=== PATIENT | male | born 1935 | race Caucasian/White ===

== ENCOUNTER 2017-04-10 15:37 | Observation (INO) ==
--- NOTE | 2017-04-10 16:12 | Emergency Department Note ---
Disposition Clinical Impression: Dyspnea Disposition: Admitted As Inpatient Condition: Fair Time of Disposition: 18:49 (margarita mirandav [facility]) SOB HPI - General Chief Complaint: ED General Medical Stated Complaint: Aspirating Source: patient, EMS, other Mode of arrival: EMS Limitations: physical limitation, age Nursing Notes Reviewed: Yes Vital Signs Reviewed: Yes - History of Present Illness 81-year-old male brought in from home who presents to the emergency room who per the caregiver is concerned that he may have aspirated he receives almost 1 L of fluids in a very short period time through his PEG tube and he has had some episodes of recent episodes which would be consistent with potential for aspiration as result they contacted the family physician is 70 emergency room in addition that he has been having cough congestion large amount of phlegm through the tracheostomy site and he has been having frequency and urgency they did not note that he has had any complaints of any dysuria patient is difficult to understand due to prior medical history with him being minimal verbal Pt Subjective Complaint: shortness of breath, cough Onset (ago): hour(s) (12) Context: recent illness Severity: none, moderate Consistency/Duration: constant Improves with: nothing Worsens with: lying flat, exertion Known history of: COPD, recurrent pneumonia Associated symptoms: Reports: cough, wheezing, sputum production. Denies: chest pain, pain with inspiration, fever, orthopnea, lower extremity pain, polyuria, polydipsia, parasthesias, palpitations, hemoptysis, diaphoresis, nausea/vomiting, syncope, abdominal pain, sense of impending doom Treatment prior to arrival: none, diuretics Cough Description: Involuntary, Productive, Moist, Strong Cough Frequency: Intermittent Sputum production: No Sputum Amount: Moderate Sputum Color: Cream - Related Data Home Medications Medication Instructions Recorded Confirmed Clopidogrel [Plavix] 75 mg GTUBE DAILY 05/26/15 04/10/17 LORazepam [Ativan] 1 mg GTUBE BID PRN 05/26/15 04/10/17 Mometasone/Formoterol [Dulera 100 2 inh IH DAILY 05/26/15 04/10/17 Mcg/5 Mcg Inhaler] Montelukast [Singulair] 10 mg GTUBE DAILY 05/26/15 04/10/17 Nitroglycerin 0.4 mg TD DAILY 05/26/15 04/10/17 Nutritional Supplement [Nutren 2.0] 250 ml GTUBE Q4HR 05/26/15 04/10/17 Rosuvastatin Calcium [Crestor] 5 mg GTUBE DAILY 05/26/15 04/10/17 Sucralfate [Carafate] 1 gm GTUBE TID 05/26/15 04/10/17 Tiotropium [Spiriva] 18 mcg IH DAILY 05/26/15 04/10/17 Albuterol Neb [AccuNeb] 1.25 mg IH QID 01/29/16 04/10/17 Allopurinol [Zyloprim 100 MG] 200 mg GTUBE DAILY 01/29/16 04/10/17 Amoxicillin Susp [Amoxil] 5 ml PO BID 01/29/16 04/10/17 Divalproex Sodium [Depakote] 250 mg GTUBE TID 01/29/16 04/10/17 LORazepam [Ativan] 1 mg GTUBE QID 01/29/16 04/10/17 Memantine HCl/Donepezil HCl 1 each GTUBE HS 01/29/16 04/10/17 [Namzaric 28 mg-10 mg Capsule] Zolpidem [Ambien] 10 mg GTUBE HS 01/29/16 04/10/17 Acetaminophen [Tylenol] 500 mg GTUBE Q6HR 04/10/17 04/10/17 Albuterol Sulfate [Albuterol 1 puff IH Q4H 04/10/17 04/10/17 Inhaler] Clopidogrel [Plavix] 75 mg GTUBE DAILY 04/10/17 04/10/17 Dicyclomine [Dicyclomine HCl] 10 mg GTUBE Q4H PRN 04/10/17 04/10/17 Docusate [Colace] 100 mg GTUBE BID 04/10/17 04/10/17 Ferrous Sulfate [Ferosul] 10 ml GTUBE DAILY 04/10/17 04/10/17 Fluticasone Propionate Nasal 50 mcg NS QPM 04/10/17 04/10/17 [Flonase] Gabapentin [Neurontin] 2 ml GTUBE TID 04/10/17 04/10/17 Guaifenesin [Mucinex] 600 mg GTUBE TID 04/10/17 04/10/17 Ibuprofen Susp [Motrin Susp] 800 mg GTUBE Q6H 04/10/17 04/10/17 Loratadine [Allergy Relief] 10 mg GTUBE 04/10/17 MOM Conc [Milk of Magnesia Conc] 30 ml GTUBE DAILY 04/10/17 04/10/17 Melatonin 4 mg GTUBE DAILY 04/10/17 04/10/17 Memantine HCl/Donepezil HCl 1 each GTUBE DAILY 04/10/17 04/10/17 [Namzaric 28 mg-10 mg Capsule] Metoprolol Tartrate [Lopressor] 25 mg GTUBE BID 04/10/17 04/10/17 Montelukast [Singulair] 10 mg GTUBE DAILY 04/10/17 04/10/17 NaCl/Nahco3/Hyaluron Sod/Aloe 50 mcg IH DAILY 04/10/17 04/10/17 [Nasogel Nasal Ray] Nutritional Supplement [Resource GTUBE QID 04/10/17 2.0] Nystatin POWDER [Nystop] 10 ml TP BID 04/10/17 04/10/17 PredniSONE [Carina] 5 mg GTUBE DAILY 04/10/17 04/10/17 Quetiapine Fumarate [Seroquel Xr] 200 mg GTUBE DAILY 04/10/17 04/10/17 Rosuvastatin Calcium [Crestor] 5 mg GTUBE QPM 04/10/17 04/10/17 Tamsulosin HCl [Flomax] 0.4 mg GTUBE DAILY 04/10/17 04/10/17 Valproic Acid (As Sodium Salt) GTUBE TID 04/10/17 04/10/17 [Valproic Acid] Allergies Allergy/AdvReac Type Severity Reaction Status Date / Time diazepam [From Valium] Allergy Agitated Verified 05/26/15 22:15 All systems ED: reviewed and negative except as stated. Review of Systems: As Per HPI Constitutional: Denies: fever, chills, weakness Eyes: Denies: eye pain ENT ED: Denies: ear pain Cardiovascular: Denies: chest pain Respiratory: Reports: cough, dyspnea Gastrointestinal: Denies: abdominal pain, nausea, vomiting Genitourinary: Denies: urgency, dysuria, frequency Musculoskeletal: Denies: back pain Integumentary: Denies: rash Neurological: Denies: headache Psychiatric: Denies: anxiety Endocrine: Denies: fatigue Hematological/Lymphatic: Denies: easy bleeding Allergic/Immunologic: Denies: facial swelling Past Medical History - Past Medical History Attestation: Yes The following information was validated with the patient. Source: patient, old records reviewed, obtained from family, nursing notes reviewed Medical history: Reports: COPD, CVA, dementia, hyperlipidemia, hypertension, other Surgical history: Reports: tracheostomy Psychiatric history: Reports: anxiety - Social History Smoking Status: Former smoker Smokeless Tobacco Status: No Alcohol use: Reports: none Drug use: Reports: none Physical Exam - General Limitations: physical limitation, age General appearance: alert, in no apparent distress, anxious, obese - Head Head exam: atraumatic, normocephalic, normal inspection - Eye Eye exam: Present: normal appearance, PERRL, EOMI - ENT ENT exam: normal exam, normal oropharynx, mucous membranes moist, normal external ear exam, other (Posterior pharyngeal shows a little bit of mucus but there is no erythema no edema no formula or fluids noted within the oral pharyngeal region consistent with aspiration of formula or PEG tube feeding) - Neck Neck exam: Present: normal inspection, full ROM, trachea midline, other ( Tracheostomy large amount of green phlegm noted within the tracheal region) - Chest Chest inspection: Present: normal inspection, symmetric chest wall rise - Respiratory Respiratory exam: Present: normal lung sounds bilaterally, other (Rhonchi) - Cardiovascular Cardiovascular exam: Present: regular rate, normal rhythm, normal heart sounds - Abdominal Exam Abdominal exam: Present: soft, Non-Tender, distention, normal bowel sounds. Absent: mass, pulsatile mass - Expanded Upper Extremity Exam Shoulder exam: Present: normal inspection, full ROM, other (Depression extremity shows a flexion contracture of that he had hand and wrist region in comparison to the right arm which has full range of motion neurovascular motor intact PEG tube is noted) Arm exam: Present: normal inspection, full ROM Elbow exam: Present: normal inspection, full ROM Forearm/Wrist exam: Present: normal inspection, full ROM Hand exam: Present: normal inspection, full ROM Neurosensory exam: Normal: radial nerve, ulnar nerve, median nerve Vascular exam: Normal: capillary refill, radial pulse, ulnar pulse - Expanded Lower Extremity Exam Hip/Pelvis exam: Present: normal inspection, full ROM Upper leg exam: Present: normal inspection, full ROM Knee exam: Present: normal inspection, full ROM Lower leg exam: Present: normal inspection, full ROM Ankle exam: Present: normal inspection, full ROM Foot/toe exam: Present: normal inspection, full ROM Neurovascular/Tendon exam: Present: normal capillary refill, normal fine/light touch (Patient has bilateral lower extremity neurovascular motor intact jumping up and down fidgeting while laying on the bed trying to get comfortable). Absent: motor deficit, sensory deficit, tendon deficit Gait: observed and normal - Back Exam Back exam: Present: normal inspection, full ROM. Absent: muscle spasm - Neurological Exam Neurological exam: Present: alert, oriented X3, CN II-XII intact, other ( Nonverbal but communicates well) - Psychiatric Psychiatric exam: Present: normal affect, normal mood - Skin Skin exam: Present: warm, dry, intact, normal color Course Course Narrative: She presents to the emergency room with a history of possible aspiration examination was performed patient was started on antibiotics to cover him in the event that he would show any signs of sepsis though at this time he does not show does not be septic protocol patient though in review chest x-ray is obtained I spoke with Dr. Barreto as he had significant rhonchi was blowing large amount of mucus out through his stoma CT was not done because he just had a CAT scan yesterday and it showed cavitary lesions on the CAT scan as result he was admitted for observation with repeat chest x-ray in the a.m. receiving IV antibiotics in the event that got underlying with increased consolidation in the left basilar region is noted slight haziness pattern which be consistent with an early pneumonia Vital Signs Temperature 98.8 F 04/10/17 15:39 Pulse Rate 88 04/10/17 15:39 Respiratory Rate 20 04/10/17 15:39 Blood Pressure 151/75 04/10/17 15:39 O2 Sat by Pulse Oximetry 93 04/10/17 15:39 Temperature 98.8 F 04/10/17 18:26 Pulse Rate 93 04/10/17 19:01 Respiratory Rate 16 04/10/17 19:01 Blood Pressure 177/81 04/10/17 19:01 O2 Sat by Pulse Oximetry 95 04/10/17 19:01 Oxygen Delivery Oxygen Delivery Nasal Cannula Shortness of Breath/Dyspnea - [facility] Narrative Medical decision making narrative: Aspiration pneumonia versus pneumonia patient recently just been hospitalized for pneumonia In addition urinary tract infection and infectious etiology can also be etiologies for presentation at this time - Differential Diagnosis Likely: acute exacerbation of chronic obstructive airways disease - Medical Records Medical records reviewed: Yes I reviewed the patient's medical records. - Lab Data Lab results reviewed: Yes I reviewed the patient's lab results. Result diagrams: 04/10/17 16:20 04/10/17 16:20 Lab Results 04/10/17 04/10/17 04/10/17 Range/Units 16:20 16:20 16:20 WBC 4.2 L (4.3-11.1) K/mcL RBC 3.68 L (4.19-5.50) M/mcL Hgb 10.0 L (12.9-16.9) g/dL Hct 32.1 L (37.5-50.1) % MCV 87.2 (83.0-100.0) fL MCH 27.2 L (28.0-33.3) pg MCHC 31.2 L (31.6-35.5) g/dL RDW 14.8 H (11.5-14.5) % Plt Count 163 (140-400) K/mcL MPV 10.0 (9.4-12.4) fL Immature Gran % 0.7 (0-4) % Seg Neutrophils % 57.4 % Lymphocytes % 26.3 % Monocytes % 12.0 % Eosinophils % 3.1 % Basophils % 0.5 % Neutrophils # 2.4 (1.6-8.9) K/mcL Lymphocytes # 1.1 (0.6-4.6) K/mcL Monocytes # 0.5 (0.0-1.3) K/mcL Eosinophils # 0.1 (0.0-0.6) K/mcL Basophils # 0.0 (0.0-0.2) K/mcL Platelet Estimate Normal (Normal) PT 10.5 (9.4-12.1) Seconds INR 1.0 APTT 29.9 (26.0-36.0) Seconds Sodium 133 L (136-145) mEq/L Potassium 4.8 H (3.5-4.5) mEq/L Chloride 94 L (98-109) mEq/L Carbon Dioxide 31 H (19-29) mEq/L BUN 22 (8-26) mg/dL Creatinine 1.22 (0.72-1.25) mg/dL Est GFR ( Amer) > 60 (> 60) Est GFR (Non-Af Amer) 57 L (> 60) BUN/Creatinine Ratio 18 (6-26) Glucose 102 H (70-99) mg/dL Calculated Osmolality 280 (280-300) Calcium 10.4 (8.6-10.8) mg/dL Total Bilirubin 0.2 (0.2-1.2) mg/dL AST 15 (5-34) Units/L ALT 12 (0-55) Units/L Alkaline Phosphatase 81 (38-126) Units/L Troponin I (0-0.03) ng/mL B-Natriuretic Peptide (0-100) pg/mL Serum Total Protein 7.0 (6.0-8.3) g/dL Albumin 3.1 L (3.5-5.0) g/dL Globulin 3.9 H (2.4-3.5) g/dL Albumin/Globulin Ratio 0.8 L (1.1-2.2) Ur Specimen Adequacy Urine Color Urine Clarity Urine pH Ur Specific Bantam Urine Protein Urine Glucose (UA) Urine Ketones Urine Blood Urine Nitrite Urine Bilirubin Urine Urobilinogen Ur Leukocyte Esterase Urine Microscopic RBC (0-3) per hpf Urine Microscopic WBC Ur Squamous Epith Cells (None-Few) per lpf Ur Culture Indicated? (NO) Valproic Acid (50-100) mcg/mL 04/10/17 04/10/17 04/10/17 Range/Units 16:20 16:20 16:20 WBC (4.3-11.1) K/mcL RBC (4.19-5.50) M/mcL Hgb (12.9-16.9) g/dL Hct (37.5-50.1) % MCV (83.0-100.0) fL MCH (28.0-33.3) pg MCHC (31.6-35.5) g/dL RDW (11.5-14.5) % Plt Count (140-400) K/mcL MPV (9.4-12.4) fL Immature Gran % (0-4) % Seg Neutrophils % % Lymphocytes % % Monocytes % % Eosinophils % % Basophils % % Neutrophils # (1.6-8.9) K/mcL Lymphocytes # (0.6-4.6) K/mcL Monocytes # (0.0-1.3) K/mcL Eosinophils # (0.0-0.6) K/mcL Basophils # (0.0-0.2) K/mcL Platelet Estimate (Normal) PT (9.4-12.1) Seconds INR APTT (26.0-36.0) Seconds Sodium (136-145) mEq/L Potassium (3.5-4.5) mEq/L Chloride (98-109) mEq/L Carbon Dioxide (19-29) mEq/L BUN (8-26) mg/dL Creatinine (0.72-1.25) mg/dL Est GFR ( Amer) (> 60) Est GFR (Non-Af Amer) (> 60) BUN/Creatinine Ratio (6-26) Glucose (70-99) mg/dL Calculated Osmolality (280-300) Calcium (8.6-10.8) mg/dL Total Bilirubin (0.2-1.2) mg/dL AST (5-34) Units/L ALT (0-55) Units/L Alkaline Phosphatase (38-126) Units/L Troponin I 0.00 (0-0.03) ng/mL B-Natriuretic Peptide 43 (0-100) pg/mL Serum Total Protein (6.0-8.3) g/dL Albumin (3.5-5.0) g/dL Globulin (2.4-3.5) g/dL Albumin/Globulin Ratio (1.1-2.2) Ur Specimen Adequacy Urine Color Urine Clarity Urine pH Ur Specific [place] Urine Protein Urine Glucose (UA) Urine Ketones Urine Blood Urine Nitrite Urine Bilirubin Urine Urobilinogen Ur Leukocyte Esterase Urine Microscopic RBC (0-3) per hpf Urine Microscopic WBC Ur Squamous Epith Cells (None-Few) per lpf Ur Culture Indicated? (NO) Valproic Acid 44.9 L (50-100) mcg/mL 04/10/17 04/10/17 Range/Units 17:00 18:22 WBC (4.3-11.1) K/mcL RBC (4.19-5.50) M/mcL Hgb (12.9-16.9) g/dL Hct (37.5-50.1) % MCV (83.0-100.0) fL MCH (28.0-33.3) pg MCHC (31.6-35.5) g/dL RDW (11.5-14.5) % Plt Count (140-400) K/mcL MPV (9.4-12.4) fL Immature Gran % (0-4) % Seg Neutrophils % % Lymphocytes % % Monocytes % % Eosinophils % % Basophils % % Neutrophils # (1.6-8.9) K/mcL Lymphocytes # (0.6-4.6) K/mcL Monocytes # (0.0-1.3) K/mcL Eosinophils # (0.0-0.6) K/mcL Basophils # (0.0-0.2) K/mcL Platelet Estimate (Normal) PT (9.4-12.1) Seconds INR APTT (26.0-36.0) Seconds Sodium (136-145) mEq/L Potassium (3.5-4.5) mEq/L Chloride (98-109) mEq/L Carbon Dioxide (19-29) mEq/L BUN (8-26) mg/dL Creatinine (0.72-1.25) mg/dL Est GFR ( Amer) (> 60) Est GFR (Non-Af Amer) (> 60) BUN/Creatinine Ratio (6-26) Glucose (70-99) mg/dL Calculated Osmolality (280-300) Calcium (8.6-10.8) mg/dL Total Bilirubin (0.2-1.2) mg/dL AST (5-34) Units/L ALT (0-55) Units/L Alkaline Phosphatase (38-126) Units/L Troponin I (0-0.03) ng/mL B-Natriuretic Peptide (0-100) pg/mL Serum Total Protein (6.0-8.3) g/dL Albumin (3.5-5.0) g/dL Globulin (2.4-3.5) g/dL Albumin/Globulin Ratio (1.1-2.2) Ur Specimen Adequacy Urine Color TNP Yellow Urine Clarity TNP Clear Urine pH TNP 7.0 Ur Specific Bantam TNP 1.010 Urine Protein TNP Negative Urine Glucose (UA) TNP Normal Urine Ketones TNP Negative Urine Blood TNP Trace-intact H Urine Nitrite TNP Negative Urine Bilirubin TNP Negative Urine Urobilinogen TNP Normal Ur Leukocyte Esterase TNP Negative Urine Microscopic RBC 0-3 (0-3) per hpf Urine Microscopic WBC SPRINKLING SYSTEM IRRIGATOR 0-3 Ur Squamous Epith Cells Few (None-Few) per lpf Ur Culture Indicated? NO NO (NO) Valproic Acid (50-100) mcg/mL - Radiology Data Radiology results reviewed: Yes I reviewed the patient's radiology results. ITS Impressions Chest X-Ray 04/10/17 15:52 IMPRESSION: 1. Stable chronic perihilar and left lung base consolidative changes. 2. No acute abnormality. D/ / 04/10/2017 16:32:48 Deon Benavides MD / nesha Interpreting Provider: Deon Benavides MD Critical Care Time Critical Care Time: No
[2017-04-10 16:33] LABS: Basophils % 0.5 %; Eosinophils # 0.1 K/mcL (0.0-0.6); Eosinophils % 3.1 %; Hematocrit 32.1 % (37.5-50.1); Immature Granulocytes % 0.7 % (0-4); Lymphocytes # 1.1 K/mcL (0.6-4.6); Lymphocytes % 26.3 %; Mean Corpuscular HGB Conc 31.2 g/dL (31.6-35.5); Mean Corpuscular Hemoglobin 27.2 pg (28.0-33.3); Mean Corpuscular Volume 87.2 fL (83.0-100.0); Monocytes # 0.5 K/mcL (0.0-1.3); Neutrophils # 2.4 K/mcL (1.6-8.9); Platelet Count 163 K/mcL (140-400); Red Blood Count 3.68 M/mcL (4.19-5.50); Red Cell Distribution Width 14.8 % (11.5-14.5); Segmented Neutrophils % 57.4 %
[2017-04-10] MEDS ORDERED: Piperacillin/Tazobactam 3.375 GM in D5% in Water (Mini-Bag+) 100 ML IVPB ONE ×2 (16:37→20:22)
[2017-04-10] MEDS ORDERED: Levofloxacin 750 MG/150 ML 750 MG/150 ML BAG IVPB ONE ×2 (16:37→20:22)
[2017-04-10] MEDS ORDERED: Vancomycin 1,500 MG in D5% in Water 250 ML IVPB ONE (16:37)
[2017-04-10 16:42] LABS: Prothrombin Time 10.5 Seconds (9.4-12.1)
[2017-04-10 16:45] LABS: Activated Partial Thrombo Time 29.9 Seconds (26.0-36.0)
[2017-04-10 16:59] LABS: Platelet Estimate Normal (Normal)
[2017-04-10 17:02] LABS: Alanine Aminotransferase 12 Units/L (0-55); Albumin 3.1 g/dL (3.5-5.0); Albumin/Globulin Ratio 0.8 (1.1-2.2); Alkaline Phosphatase 81 Units/L (38-126); Aspartate Amino Transferase 15 Units/L (5-34); BUN/Creatinine Ratio 18 (6-26); Bilirubin,Total 0.2 mg/dL (0.2-1.2); Blood Urea Nitrogen 22 mg/dL (8-26); Calcium 10.4 mg/dL (8.6-10.8); Carbon Dioxide 31 mEq/L (19-29); Chloride 94 mEq/L (98-109); Globulin 3.9 g/dL (2.4-3.5); Glucose 102 mg/dL (70-99); Osmolality,Calculated 280 (280-300); Potassium 4.8 mEq/L (3.5-4.5); Sodium 133 mEq/L (136-145); eGFR For African Americans > 60 (> 60); eGFR For Non-African Americans 57 (> 60)
[2017-04-10 18:35] LABS: Bilirubin,Urine Negative (Negative); Blood,Urine Trace-intact (Negative); Clarity,Urine Clear (Clear); Color,Urine Yellow (Yellow); Glucose,Urine (UA) Normal (Normal); Ketones,Urine Negative (Negative); Leukocyte Esterase,Urine Negative (Negative); Nitrite,Urine Negative (Negative); Protein,Urine Negative (Neg-Trace); Urobilinogen,Urine Normal (Normal)
[2017-04-10 18:42] LABS: RBC,Urine 0-3 per hpf (0-3); Squamous Epithelial Cell,Urine Few per lpf (None-Few); WBC,Urine 0-3 per hpf (0-3)
[2017-04-10] MEDS ORDERED: Naloxone 0.4 MG/ML INJ IVP PRN (20:22)
[2017-04-10] MEDS ORDERED: NUTRITIONAL SUPPLEMENT GTUBE SCH (20:22)
[2017-04-10] MEDS ORDERED: *HR* LORazepam 1 MG TABLET GTUBE PRN (20:22)
[2017-04-10] MEDS ORDERED: 0.9 % Sodium Chloride 1,000 ML IVC SCH (20:22)
[2017-04-10] MEDS ORDERED: Ondansetron 4 MG/2 ML VIAL IVP PRN (20:22)
[2017-04-10] MEDS ORDERED: DICYCLOMINE 10 MG/5 ML PO PRN (20:22)
[2017-04-10] MEDS ORDERED: IBUPROFEN 800 MG GTUBE SCH (20:22)
[2017-04-10] MEDS ORDERED: MEMANTINE HCL GTUBE SCH (21:00)
[2017-04-10] MEDS ORDERED: DONEPEZIL HCL GTUBE SCH (21:00)
[2017-04-10] MEDS ORDERED: Nystatin POWDER 30 GM BOTTLE TP SCH (21:00)
[2017-04-10] MEDS ORDERED: Divalproex Sodium 125 MG CAPSULE GTUBE SCH (21:00)
[2017-04-10] MEDS ORDERED: Albuterol 2.5 MG/3 ML NEBULIZER IH SCH (23:00)
[2017-04-10] MEDS: Docusate Oral Soln 100 MG/10 ML UDC GTUBE SCH (23:58)
[2017-04-11] MEDS: GuaiFENesin Liq 200 MG/10 ML UDC PO SCH ×2 (00:01→09:26)
[2017-04-11] MEDS: *HR* LORazepam 1 MG TABLET GTUBE SCH ×2 (00:02→09:27)
[2017-04-11] MEDS ORDERED: Albuterol 2.5 MG/3 ML NEBULIZER IH SCH (04:31)
[2017-04-11] MEDS ORDERED: Nystatin Cream 15 GM TUBE TP PRN (04:48)
[2017-04-11 07:05] LABS: Basophils % 0.4 %; Eosinophils # 0.2 K/mcL (0.0-0.6); Eosinophils % 2.9 %; Hemoglobin 9.9 g/dL (12.9-16.9); Immature Granulocytes % 0.7 % (0-4); Lymphocytes # 1.4 K/mcL (0.6-4.6); Lymphocytes % 25.3 %; Mean Corpuscular HGB Conc 30.9 g/dL (31.6-35.5); Mean Corpuscular Hemoglobin 26.6 pg (28.0-33.3); Mean Platelet Volume 10.2 fL (9.4-12.4); Monocytes # 0.7 K/mcL (0.0-1.3); Monocytes % 12.4 %; Neutrophils # 3.3 K/mcL (1.6-8.9); Platelet Count 174 K/mcL (140-400); Red Blood Count 3.72 M/mcL (4.19-5.50); Red Cell Distribution Width 14.8 % (11.5-14.5); Segmented Neutrophils % 58.3 %
[2017-04-11 07:11] LABS: INR 1.1; Prothrombin Time 11.6 Seconds (9.4-12.1)
[2017-04-11 07:14] LABS: Activated Partial Thrombo Time 29.6 Seconds (26.0-36.0)
[2017-04-11 07:16] LABS: BUN/Creatinine Ratio 15 (6-26); Blood Urea Nitrogen 19 mg/dL (8-26); Calcium 10.4 mg/dL (8.6-10.8); Carbon Dioxide 29 mEq/L (19-29); Chloride 98 mEq/L (98-109); Glucose 75 mg/dL (70-99); Osmolality,Calculated 289 (280-300); Potassium 5.3 mEq/L (3.5-4.5); Sodium 139 mEq/L (136-145); eGFR For African Americans > 60 (> 60); eGFR For Non-African Americans 54 (> 60)
[2017-04-11 07:31] VITALS: BP 124/77
[2017-04-11] MEDS: Gabapentin 100 MG CAPSULE GTUBE SCH ×2 (08:01→09:27)
[2017-04-11] MEDS ORDERED: predniSONE 5 MG TABLET GTUBE SCH (09:00)
[2017-04-11] MEDS ORDERED: NON-FORMULARY MEDICATION 1 EACH EACH (Rosuvastatin Calcium [Crestor] 5 MG) GTUBE SCH (09:00)
[2017-04-11] MEDS ORDERED: Ferrous Sulfate Oral Soln 300 MG/5 ML UDC GTUBE SCH (09:00)
[2017-04-11] MEDS ORDERED: Valproic Acid Oral Soln 250 MG/5 ML UDC GTUBE SCH (09:00)
[2017-04-11] MEDS ORDERED: Loratadine 10 MG TABLET GTUBE SCH (09:00)
[2017-04-11] MEDS ORDERED: DONEPEZIL HCL GTUBE SCH (09:00)
[2017-04-11] MEDS ORDERED: Nitroglycerin 0.4 MG PATCH.TD24 TD SCH (09:00)
[2017-04-11] MEDS ORDERED: MEMANTINE HCL GTUBE SCH (09:00)
[2017-04-11] MEDS ORDERED: MOM Conc 10 ML UD.LIQ GTUBE SCH (09:00)
--- NOTE | 2017-04-11 09:07 | Internal Med History&Physical ---
Date of Encounter: 04/11/17 Time of Encounter: 08:35 Assessment and Plan (1) Dyspnea Current visit: Yes Status: Acute He has been admitted to [facility] floor and was given a dose of IV Levaquin and Zosyn. Repeat chest x-ray was ordered. Qualifiers: Dyspnea type: unspecified Qualified Code(s): R06.00 - Dyspnea, unspecified Internal Medicine - H&P: HPI Chief complaint: Dyspnea Admitted From: Home Plans for Post Hospital Care: Home History of present illness: Mr. Marin is a 81 year old male who was sent to emergency room at the suggestion of his home health provider after there was concern he possibly aspirated tube feeding. He was evaluated in emergency room and admitted to [facility] floor for ongoing care needs. He is nonverbal secondary to past stroke with dementia. His supplies history and states he was hospitalized at [facility] March 18 with pneumonia. He received IV antibiotics during hospitalization and continued these for 5-7 days after discharge. He then resumed a cyclic antibiotic regimen of 3 weeks on/1 week off. He is presently off antibiotics. His respiratory history significant for having quit smoking in 1987 after approximately 50 years up to one pack per day. He has chronic respiratory failure and has tracheostomy in place. Past Med Surg Social Fam HX - Past Medical History Medical history: COPD, CVA, dementia, hyperlipidemia, hypertension, other Psychiatric history: anxiety - Past Surgical History Surgical History: herniorrhaphy, tracheostomy - Social History Smoking Status: Former smoker Smokeless Tobacco Status: No Alcohol use: none Drug use: none Internal Medicine - H&P: Meds LORazepam [Ativan] 1 mg GTUBE HS 05/26/15 [History] Mometasone/Formoterol [Dulera 100 Mcg/5 Mcg Inhaler] 2 inh IH DAILY 05/26/15 [ History] Nitroglycerin 0.4 mg TD DAILY 05/26/15 [History] Nutritional Supplement [Nutren 2.0] 250 ml GTUBE Q4HR 05/26/15 [History] Rosuvastatin Calcium [Crestor] 5 mg GTUBE DAILY 05/26/15 [History] Sucralfate [Carafate] 1 gm GTUBE QIDAC 05/26/15 [History] Tiotropium [Spiriva] 18 mcg IH DAILY 05/26/15 [History] Albuterol Neb [AccuNeb] 0.083 mg IH QID PRN 01/29/16 [History] Allopurinol [Zyloprim 100 MG] 200 mg GTUBE DAILY 01/29/16 [History] Amoxicillin Susp [Amoxil] 500 mg PO BID 01/29/16 [History] Divalproex Sodium [Depakote] 250 mg GTUBE TID 01/29/16 [History] LORazepam [Ativan] 1 mg GTUBE Q4HR PRN 01/29/16 [History] Memantine HCl/Donepezil HCl [Namzaric 28 mg-10 mg Capsule] 1 each GTUBE HS 01/28 [History] Zolpidem [Ambien] 10 mg GTUBE HS 01/29/16 [History] Acetaminophen [Tylenol] 500 mg GTUBE Q6HR PRN 04/10/17 [History] Albuterol Sulfate [Albuterol Inhaler] 1 puff IH Q4H 04/10/17 [History] Clopidogrel [Plavix] 75 mg GTUBE DAILY 04/10/17 [History] Dicyclomine [Dicyclomine HCl] 10 mg GTUBE Q4H PRN 04/10/17 [History] Docusate [Colace] 100 mg GTUBE BID 04/10/17 [History] Ferrous Sulfate [Ferosul] 10 ml GTUBE DAILY 04/10/17 [History] Fluticasone Propionate Nasal [Flonase] 50 mcg NS QPM 04/10/17 [History] Gabapentin [Neurontin] 100 mg GTUBE TID 04/10/17 [History] Guaifenesin [Mucinex] 600 mg GTUBE TID 04/10/17 [History] Ibuprofen Susp [Motrin Susp] 800 mg GTUBE Q6H PRN 04/10/17 [History] Loratadine [Allergy Relief] 10 mg GTUBE DAILY 04/10/17 [History] MOM Conc [Milk of Magnesia Conc] 30 ml GTUBE DAILY PRN 04/10/17 [History] Melatonin 4 mg GTUBE HS 04/10/17 [History] Memantine HCl/Donepezil HCl [Namzaric 28 mg-10 mg Capsule] 1 each GTUBE DAILY [History] Metoprolol Tartrate [Lopressor] 25 mg GTUBE BID MDD 50 mg 04/10/17 [History] Montelukast [Singulair] 10 mg GTUBE DAILY 04/10/17 [History] NaCl/Nahco3/Hyaluron Sod/Aloe [Nasogel Nasal Chloe] 50 mcg IH DAILY 04/10/17 [ History] Nutritional Supplement [Resource 2.0] 237 ml GTUBE QID 04/10/17 [History] Nystatin POWDER [Nystop] 10 ml TP BID 04/10/17 [History] PredniSONE [Carina] 5 mg GTUBE DAILY 04/10/17 [History] Quetiapine Fumarate [Seroquel Xr] 200 mg GTUBE DAILY 04/10/17 [History] Rosuvastatin Calcium [Crestor] 5 mg GTUBE QPM 04/10/17 [History] Tamsulosin HCl [Flomax] 0.4 mg GTUBE DAILY 04/10/17 [History] Valproic Acid (As Sodium Salt) [Valproic Acid] 500 mg GTUBE TID 04/10/17 [ History] 3 Allergy/AdvReac Type Severity Reaction Status Date / Time diazepam [From Valium] Allergy Agitated Verified 05/26/15 22:15 All Systems PM: A 10-system review of systems was performed and is negative for pertinent findings except as documented above in the HPI. Review of systems: Gen.: His weight has increased from 161 pounds January 2015 to present weight of approximately 220 pounds Cardiovascular: He has history of hypertension. He had AAA repair 1997. Echocardiogram July 2014 showed LVEF of 20-25%. Valvular structures were not seen well. He had mild TR. The estimated RVSP was 45 mmHg. He has not had DVT or pulmonary embolus. Respiratory: As per history of present illness GI: He has no known disorder of liver gallbladder or exocrine pancreas. He had abdominal hernia with mesh placement and G-tube placed August 2014 at [facility]. : He has chronic kidney disease stage III. No other kidney or bladder disorders or known Neurologic: Had a CVA approximately 1999 with left arm weakness. He has not had known seizures. He has dementia. Endocrine: He has hyperlipidemia but no known diabetes or thyroid disease Hematology/oncology: He has anemia with workup December 2016 showing no factor deficiency. He does not have known internal malignancies Psychiatric: He has dementia and agitation but no significant anxiety depression or other mental health issues Musk skeletal: He has DJD and gout - Constitutional Vitals: Temp Pulse Resp BP Pulse Ox 100.0 F H 96 18 124/77 90 04/11/17 07:25 04/11/17 07:25 04/11/17 07:25 04/11/17 07:25 04/11/17 07:25 Exam: Gen.: He is a well-developed well-nourished male lying in bed appears in no acute distress HEENT: Head is atraumatic and normocephalic. Eyes: EOMI. There is no scleral icterus. Mouth: Mucosa is moist. Neck: Tracheostomy is in place. There is no thyromegaly or adenopathy noted. Heart: Regular rate approximately 80/m. Lungs: He has mild's [place] wheezing heard most in the left anterior lung. No inspiratory crackles are heard and he does not cough during examination Abdomen: G-tube is in place in the epigastric area. There is a well-healed longitudinal midline abdominal scar. No masses or guarding are noted. Extremities: There is no cyanosis edema or clubbing noted. Dorsalis pedis and posttibial pulses are 1-2 over 2 bilaterally. Neurologic: Mental status: He is awake and follows a few commands but is not conversational and makes no attempt to phonate. Cranial nerves: Facial movements are symmetric. EOMI. Temperature midline. Motor: He does not move his arms or legs much spontaneously. 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 No further neurologic testing is attempted. Skin: Warm and dry Internal Med - H&P Results - Labs CBC & Chem 7: 04/11/17 05:12 04/11/17 05:12 Labs: Short CBC 04/11/17 Range/Units 05:12 WBC 5.6 (4.3-11.1) K/mcL Hgb 9.9 L (12.9-16.9) g/dL Hct 32.0 L (37.5-50.1) % Plt Count 174 (140-400) K/mcL Neutrophils # 3.3 (1.6-8.9) K/mcL BMP 04/11/17 05:12 Sodium 139 Potassium 5.3 H Chloride 98 Carbon Dioxide 29 BUN 19 Creatinine 1.29 H Glucose 75 Calcium 10.4 - Impressions ITS Impressions Chest X-Ray 04/11/17 07:00 IMPRESSION: No evidence of acute disease. D/ / 04/11/2017 08:19:51 Mal Lowry MD / nesha Interpreting Provider: Mal Lowry MD
--- NOTE | 2017-04-11 09:18 | Discharge Summary ---
Date of Encounter: 04/11/17 Time of Encounter: 08:35 - Discharge Diagnosis (1) Dyspnea Priority: Primary Status: Acute Qualifiers: Dyspnea type: unspecified Qualified Code(s): R06.00 - Dyspnea, unspecified - Discharge Medications Home Medications: LORazepam [Ativan] 1 mg GTUBE HS 05/26/15 [History] Mometasone/Formoterol [Dulera 100 Mcg/5 Mcg Inhaler] 2 inh IH DAILY 05/26/15 [ History] Nitroglycerin 0.4 mg TD DAILY 05/26/15 [History] Nutritional Supplement [Nutren 2.0] 250 ml GTUBE Q4HR 05/26/15 [History] Rosuvastatin Calcium [Crestor] 5 mg GTUBE DAILY 05/26/15 [History] Sucralfate [Carafate] 1 gm GTUBE QIDAC 05/26/15 [History] Tiotropium [Spiriva] 18 mcg IH DAILY 05/26/15 [History] Albuterol Neb [AccuNeb] 0.083 mg IH QID PRN 01/29/16 [History] Allopurinol [Zyloprim 100 MG] 200 mg GTUBE DAILY 01/29/16 [History] Amoxicillin Susp [Amoxil] 500 mg PO BID 01/29/16 [History] Divalproex Sodium [Depakote] 250 mg GTUBE TID 01/29/16 [History] LORazepam [Ativan] 1 mg GTUBE Q4HR PRN 01/29/16 [History] Memantine HCl/Donepezil HCl [Namzaric 28 mg-10 mg Capsule] 1 each GTUBE HS 01/28 [History] Zolpidem [Ambien] 10 mg GTUBE HS 01/29/16 [History] Acetaminophen [Tylenol] 500 mg GTUBE Q6HR PRN 04/10/17 [History] Albuterol Sulfate [Albuterol Inhaler] 1 puff IH Q4H 04/10/17 [History] Clopidogrel [Plavix] 75 mg GTUBE DAILY 04/10/17 [History] Dicyclomine 10 mg GTUBE Q4H PRN 04/10/17 [History] Docusate [Colace] 100 mg GTUBE BID 04/10/17 [History] Ferrous Sulfate [Ferosul] 10 ml GTUBE DAILY 04/10/17 [History] Fluticasone Propionate Nasal [Flonase] 50 mcg NS QPM 04/10/17 [History] Gabapentin [Neurontin] 100 mg GTUBE TID 04/10/17 [History] Guaifenesin [Mucinex] 600 mg GTUBE TID 04/10/17 [History] Ibuprofen Susp [Motrin Susp] 800 mg GTUBE Q6H PRN 04/10/17 [History] Loratadine [Allergy Relief] 10 mg GTUBE DAILY 04/10/17 [History] MOM Conc [MILK OF MAGNESIA conc] 30 ml GTUBE DAILY PRN 04/10/17 [History] Melatonin 4 mg GTUBE HS 04/10/17 [History] Memantine HCl/Donepezil HCl [Namzaric 28 mg-10 mg Capsule] 1 each GTUBE DAILY [History] Metoprolol Tartrate [Lopressor] 25 mg GTUBE BID MDD 50 mg 04/10/17 [History] Montelukast [Singulair] 10 mg GTUBE DAILY 04/10/17 [History] NaCl/Nahco3/Hyaluron Sod/Aloe [Nasogel Nasal [place]] 50 mcg IH DAILY 04/10/17 [ History] Nutritional Supplement [Resource 2.0] 237 ml GTUBE QID 04/10/17 [History] Nystatin POWDER [Nystop] 10 ml TP BID 04/10/17 [History] PredniSONE [Carina] 5 mg GTUBE DAILY 04/10/17 [History] Quetiapine Fumarate [Seroquel Xr] 200 mg GTUBE DAILY 04/10/17 [History] Rosuvastatin Calcium [Crestor] 5 mg GTUBE QPM 04/10/17 [History] Tamsulosin HCl [Flomax] 0.4 mg GTUBE DAILY 04/10/17 [History] Valproic Acid (As Sodium Salt) [Valproic Acid] 500 mg GTUBE TID 04/10/17 [ History] Allergies/Adverse Reactions: 3 Allergy/AdvReac Type Severity Reaction Status Date / Time diazepam [From Valium] Allergy Agitated Verified 05/26/15 22:15 Date of admission: 04/10/17 19:00 Primary care physician: Irene Donato - Patient Status Disposition: Home Health Service Condition: Fair Functional capacity at discharge: bed bound Overall status at discharge: patient is progressing back to baseline - Discharge Instructions Follow Up With: Irene Donato MD [Primary Care Provider] - - Diet and Activity Activity: resume usual activities as tolerated, wear oxygen at all times Diet: advance to your usual diet Hospital course: Mr. Marin is a 81 year old male who was sent to emergency room at the suggestion of his home health provider after there was concern he possibly aspirated tube feeding. He was evaluated in emergency room and admitted to [facility] for ongoing care needs. Initial orders were written by the emergency room physician. I saw him on April 11 and performed a history and physical discharge. When I examined him he appeared to be at baseline. His did not feel he aspirated at home and felt he was stable for discharge back home. Follow-up chest x-ray showed no evidence of infiltrate. Follow-up CBC showed no leukocytosis or left shift. He will follow with his PCP and electrical sign wirer helper as scheduled. I will not change his cyclic antibiotic regimen at this time. - Time Spent with Patient Total time spent providing and/or coordinating discharge services: - Constitutional Vitals: Temp Pulse Resp BP Pulse Ox 100.0 F H 96 18 124/77 90 04/11/17 07:25 04/11/17 07:25 04/11/17 07:25 04/11/17 07:25 04/11/17 07:25
--- NOTE | 2017-04-11 09:20 | Physician Discharge Referral ---
Home Health/Hosp Referral Info Transfer to: Home Health Attending Provider: Estevan Provider in Charge Post Discharge: PCP Miguel A) - Diagnosis (1) Dyspnea Priority: Primary Status: Acute - Respiratory Orders Oxygen / L per min (Oxygen by trach mask as at home.) Smoking Cessation: Smoking cessation has been advised. For more information, call the [place] Tobacco Quit Line at 5-669-QDBJ-NOW. - Activity Activity Orders: Bedrest - Services Needed Following services are medically necessary services: Nursing, Home Health Aide, Physical Therapy, Occupational Therapy - Transfer Medications Home Medications: LORazepam [Ativan] 1 mg GTUBE HS 05/26/15 [History] Mometasone/Formoterol [Dulera 100 Mcg/5 Mcg Inhaler] 2 inh IH DAILY 05/26/15 [ History] Nitroglycerin 0.4 mg TD DAILY 05/26/15 [History] Nutritional Supplement [Nutren 2.0] 250 ml GTUBE Q4HR 05/26/15 [History] Rosuvastatin Calcium [Crestor] 5 mg GTUBE DAILY 05/26/15 [History] Sucralfate [Carafate] 1 gm GTUBE QIDAC 05/26/15 [History] Tiotropium [Spiriva] 18 mcg IH DAILY 05/26/15 [History] Albuterol Neb [AccuNeb] 0.083 mg IH QID PRN 01/29/16 [History] Allopurinol [Zyloprim 100 MG] 200 mg GTUBE DAILY 01/29/16 [History] Amoxicillin Susp [Amoxil] 500 mg PO BID 01/29/16 [History] Divalproex Sodium [Depakote] 250 mg GTUBE TID 01/29/16 [History] LORazepam [Ativan] 1 mg GTUBE Q4HR PRN 01/29/16 [History] Memantine HCl/Donepezil HCl [Namzaric 28 mg-10 mg Capsule] 1 each GTUBE HS 01/28 [History] Zolpidem [Ambien] 10 mg GTUBE HS 01/29/16 [History] Acetaminophen [Tylenol] 500 mg GTUBE Q6HR PRN 04/10/17 [History] Albuterol Sulfate [Albuterol Inhaler] 1 puff IH Q4H 04/10/17 [History] Clopidogrel [Plavix] 75 mg GTUBE DAILY 04/10/17 [History] Dicyclomine 10 mg GTUBE Q4H PRN 04/10/17 [History] Docusate [Colace] 100 mg GTUBE BID 04/10/17 [History] Ferrous Sulfate [Ferosul] 10 ml GTUBE DAILY 04/10/17 [History] Fluticasone Propionate Nasal [Flonase] 50 mcg NS QPM 04/10/17 [History] Gabapentin [Neurontin] 100 mg GTUBE TID 04/10/17 [History] Guaifenesin [Mucinex] 600 mg GTUBE TID 04/10/17 [History] Ibuprofen Susp [Motrin Susp] 800 mg GTUBE Q6H PRN 04/10/17 [History] Loratadine [Allergy Relief] 10 mg GTUBE DAILY 04/10/17 [History] MOM Conc [MILK OF MAGNESIA conc] 30 ml GTUBE DAILY PRN 04/10/17 [History] Melatonin 4 mg GTUBE HS 04/10/17 [History] Memantine HCl/Donepezil HCl [Namzaric 28 mg-10 mg Capsule] 1 each GTUBE DAILY [History] Metoprolol Tartrate [Lopressor] 25 mg GTUBE BID MDD 50 mg 04/10/17 [History] Montelukast [Singulair] 10 mg GTUBE DAILY 04/10/17 [History] NaCl/Nahco3/Hyaluron Sod/Aloe [Nasogel Nasal [place]] 50 mcg IH DAILY 04/10/17 [ History] Nutritional Supplement [Resource 2.0] 237 ml GTUBE QID 04/10/17 [History] Nystatin POWDER [Nystop] 10 ml TP BID 04/10/17 [History] PredniSONE [Carina] 5 mg GTUBE DAILY 04/10/17 [History] Quetiapine Fumarate [Seroquel Xr] 200 mg GTUBE DAILY 04/10/17 [History] Rosuvastatin Calcium [Crestor] 5 mg GTUBE QPM 04/10/17 [History] Tamsulosin HCl [Flomax] 0.4 mg GTUBE DAILY 04/10/17 [History] Valproic Acid (As Sodium Salt) [Valproic Acid] 500 mg GTUBE TID 04/10/17 [ History] Allergies/Adverse Reactions: 3 Allergy/AdvReac Type Severity Reaction Status Date / Time diazepam [From Valium] Allergy Agitated Verified 05/26/15 22:15 Certification: Further, I certify that my clinical findings support that this patient is homebound (i.e. absences from home require considerable and taxing effort and are for medical reasons or sikh services or infrequently or short duration when for other reasons) because: Homebound Reason: Leaving home requires considerable and taxing effort due to condition (Bedbound) Attestation: My signature below is to certify that this patient is under my care and that I, or nurse practitioner, or a physician's assistant community manager working with me, has a face-to -face encounter with this patient.
[2017-04-11] MEDS: Docusate Oral Soln 100 MG/10 ML UDC GTUBE SCH (09:26)
[2017-04-11] MEDS ORDERED: Budesonide/Formoterol 80/4.5 MDI IH SCH (10:00)
[2017-04-11] MEDS ORDERED: Tiotropium 18 MCG inhalation IH SCH (10:00)
[2017-04-11 10:29] LABS: Chol/HDL Ratio 4.6 (0-4.9)
[2017-04-11] MEDS ORDERED: Fluticasone Propionate Nasal 50 MCG/SPRAY BOTTLE NS SCH (18:00)
[2017-04-11] MEDS ORDERED: MELATONIN 4 MG GTUBE SCH (21:00)
== END 2017-04-11 10:20 | disposition home health service (06) ==
LOC: INPPIK 15:37 → EMEROOPIK 15:37 → INPPIK 17:23
PROVIDERS: ADMIT Internal Medicine; ATTEND Internal Medicine

== ENCOUNTER 2019-03-30 08:40 | Inpatient (IN) ==
[2019-03-30] MEDS ORDERED: Piperacillin/Tazobactam 3.375 GM in Water for inj. (sterile) 20 ML IVP ONE (08:44)
[2019-03-30] MEDS ORDERED: levoFLOXacin 750 MG/150 ML 750 MG/150 ML BAG IVPB ONE (08:44)
--- NOTE | 2019-03-30 08:46 | Emergency Department Note ---
Disposition Clinical Impression: Aspiration pneumonitis Disposition: Admitted As Inpatient Condition: Fair Referrals: Irene Donato MD [Primary Care Provider] - Forms: ED Satisfaction Letter Time of Disposition: 10:00 SOB HPI - General Chief Complaint: ED Shortness of Breath/Dyspnea Stated Complaint: CHEST CONGESTION, POSSIBLE ASPIRATION Time Seen by Provider: 03/30/19 08:43 Source: patient, EMS Mode of arrival: EMS Limitations: no limitations Nursing Notes Reviewed: Yes Vital Signs Reviewed: Yes - History of Present Illness 83-year-old male brought in by ambulance today for coughing. He was not to feed overnight apart approximately 200 mL of tube feed ran in over night. He has been coughing up what looks like to feed this morning. He has done this in the past. He is in no respiratory distress at this time. He does have a trach and he has a trach mask on at 6 L and satting 95% for EMS. Patient has not had a fever. Otherwise has been doing okay at home. Pt Subjective Complaint: shortness of breath, cough - Related Data Home Medications Medication Instructions Recorded Confirmed LORazepam [Ativan] 1 mg GTUBE HS 05/26/15 03/30/19 Mometasone/Formoterol [Dulera 100 2 inh IH DAILY 05/26/15 03/30/19 Mcg/5 Mcg Inhaler] Nitroglycerin 0.4 mg TD DAILY 05/26/15 03/30/19 Rosuvastatin Calcium [Crestor] 5 mg GTUBE DAILY 05/26/15 03/30/19 Sucralfate [Carafate] 1 gm GTUBE QIDAC 05/26/15 03/30/19 Albuterol Neb [AccuNeb] 0.083 mg IH QID PRN 01/29/16 03/30/19 Allopurinol [Zyloprim 100 MG] 200 mg GTUBE DAILY 01/29/16 03/30/19 Amoxicillin Susp [Amoxil] 250 mg PO BID 01/29/16 03/30/19 LORazepam [Ativan] 1 mg GTUBE Q4HR PRN 01/29/16 03/30/19 Zolpidem [Ambien] 10 mg GTUBE HS 01/29/16 03/30/19 Albuterol Sulfate [Proventil 1 puff IH Q4H 04/10/17 03/30/19 Inhaler] Clopidogrel [Plavix] 75 mg GTUBE DAILY 04/10/17 03/30/19 Dicyclomine 10 mg GTUBE QID PRN 04/10/17 03/30/19 Docusate [Colace] 100 mg GTUBE BID 04/10/17 03/30/19 Ferrous Sulfate [Ferosul] 10 ml GTUBE DAILY 04/10/17 03/30/19 Gabapentin [Neurontin] 250 mg GTUBE TID 04/10/17 03/30/19 Guaifenesin [Mucinex] 600 mg GTUBE TID PRN 04/10/17 03/30/19 Ibuprofen Susp [Motrin Susp] 800 mg GTUBE Q6H PRN 04/10/17 03/30/19 Loratadine [Allergy Relief] 10 mg GTUBE DAILY 04/10/17 03/30/19 Melatonin 2.5 mg GTUBE HS 04/10/17 03/30/19 Metoprolol Tartrate [Lopressor] 15 mg GTUBE BID MDD 50 mg 04/10/17 03/30/19 Nutritional Supplement [Resource 237 ml GTUBE QID 04/10/17 03/30/19 2.0] Quetiapine Fumarate [Seroquel Xr] 200 mg GTUBE DAILY 04/10/17 03/30/19 Tamsulosin HCl [Flomax] 0.4 mg GTUBE DAILY 04/10/17 03/30/19 Valproic Acid ( Sodium Salt) 500 mg GTUBE TID 04/10/17 03/30/19 [Valproic Acid] Cholecalciferol (Vitamin D3) 1,000 units GTUBE DAILY 08/19/17 03/30/19 [Vitamin D3] Ketoconazole 2% CRM [Nizoral Cream] 1 appl TP BID 03/02/18 03/30/19 Ketoconazole Shampoo [Nizoral 1 applic .ROUTE Q3-4D PRN 03/02/18 03/30/19 Shampoo] Lactulose 20 gm PO DAILY PRN 03/02/18 03/30/19 Nystatin [Nystatin Suspension] 100,000 units PO QID PRN 03/02/18 03/30/19 Dutasteride 1 cap GTUBE DAILY 04/15/18 03/30/19 Furosemide [Lasix] 20 mg GTUBE DAILY 04/15/18 03/30/19 Magnesium Hydroxide [Milk of 100 ml GTUBE DAILY PRN 04/15/18 03/30/19 Magnesia] Nystatin POWDER [Nystop] 1 appl TP BID PRN 04/15/18 03/30/19 Potassium 20 mg PO DAILY 04/15/18 03/30/19 PredniSONE [Carina] 5 mg PO DAILY 04/15/18 03/30/19 Ferrous Sulfate [Ferosul] 220 mg PO DAILY 06/05/18 03/30/19 Ibuprofen [Motrin] 800 mg PO Q8HR 06/05/18 03/30/19 Magnesium Hydroxide [Milk of 1,200 mg PO DAILY 06/05/18 03/30/19 Magnesia] Montelukast [Singulair] 10 mg PO DAILY 06/05/18 03/30/19 Memantine HCl/Donepezil HCl 1 each PO DAILY 03/30/19 03/30/19 [Namzaric 28 mg-10 mg Capsule] Allergies Allergy/AdvReac Type Severity Reaction Status Date / Time diazepam [From Valium] Allergy Agitated Verified 06/05/18 20:07 Review of Systems: All other systems are negative except as noted/marked Chart generated with voice recognition software Nursing notes reviewed Old records reviewed Past Medical History - Past Medical History Attestation: Yes The following information was validated with the patient. Source: patient, old records reviewed, nursing notes reviewed Medical history: Reports: COPD, CVA, dementia, hyperlipidemia, hypertension, other Surgical history: Reports: herniorrhaphy, tracheostomy, other (G-tube) Psychiatric history: Reports: anxiety - Social History Smoking Status: Former smoker Smokeless Tobacco Status: No Alcohol use: Reports: none Drug use: Reports: none Physical Exam - General Limitations: other General appearance: alert, in no apparent distress, obese - Head Head exam: atraumatic, normocephalic, normal inspection - Eye Eye exam: Present: PERRL, EOMI - ENT ENT exam: mucous membranes dry - Neck Neck exam: Present: full ROM, trachea midline, other (trach w trach mask overtop, in place. what appears to be tube feed on Trach Mask surface) - Chest Chest inspection: Present: normal inspection, symmetric chest wall rise - Respiratory Respiratory exam: Present: other (coarse wet sounds on L) - Cardiovascular Cardiovascular exam: Present: regular rate, normal rhythm - Abdominal Exam Abdominal exam: Present: soft, Non-Tender, normal bowel sounds. Absent: tenderness, distention, guarding, rebound, rigidity - Extremities Exam Extremities exam: Present: normal inspection, full ROM, normal capillary refill. Absent: tenderness, pedal edema - Back Exam Back exam: Present: normal inspection - Neurological Exam Neurological exam: Present: alert - Psychiatric Psychiatric exam: Present: other (flat) - Skin Skin exam: Present: warm, dry, intact Course Vital Signs Temperature 97.5 F L 03/30/19 08:41 Pulse Rate 112 03/30/19 08:41 Respiratory Rate 22 03/30/19 08:41 Blood Pressure 150/99 03/30/19 08:41 O2 Sat by Pulse Oximetry 91 03/30/19 08:41 Temperature 97.5 F L 03/30/19 08:41 Pulse Rate 128 03/30/19 10:16 Respiratory Rate 20 03/30/19 10:16 Blood Pressure 139/88 03/30/19 10:16 O2 Sat by Pulse Oximetry 91 03/30/19 10:16 Oxygen Delivery Oxygen Delivery Trach Mask Shortness of Breath/Dyspnea - [facility] Narrative Medical decision making narrative: 9-year-old male comes in today after aspirating his tube feeding at home. Looking back it appears that his baseline sat is in the low to mid 90s. He is on 6 L by trach mask on arrival and 95%. He was suctioned here placed on 5 L by trach mask and is at 91-92%. He is tachycardic on arrival 0950 Patient's family is at bedside. Reviewing the situation. I think he has aspiration pneumonitis at this point. He did screen positive for sepsis with vital signs we did start some fluids or we will be cautious with these given his history of respiratory failure and renal disease. He did atraumatic therapy on arrival given that he has a more complicated respiratory tract. His sat has an 88-92% on the trach mask. We have suctioned him a couple times here to give him a breathing treatment which did not seem to make much of a difference. Discussed getting a sputum sample with the respiratory therapist and then doing some saline lavage to see if we can loosen up the to feel a bit more cleared out for him. Patient remains tachycardic at this time fluids just been home. We will reassess his heart rate after that. His initial lactic is 1.9 there is a secondary lactic ordered. Cultures were obtained. His white count did have a positive delta that this can be from the pneumonitis. I do think that he needs to be monitored overnight I think that we could probably got on the floor here. I will call the hospitalist to discuss the case with him. Spoke with Dr. Barreto who agreed to accept the patient to the floor. I think that he has aspiration pneumonitis that he has a real risk of developing pneumonia from this. After doing some lavage and suctioning his sat came up to 90-92%. He is been fluctuating [id number] depending on how deep breath he takes. I think he will be okay a couple of days that he will need monitored overnight to make sure he does not get worse. Family is comfortable with this plan. - Medical Records Medical records reviewed: Yes I reviewed the patient's medical records. - Lab Data Lab results reviewed: Yes I reviewed the patient's lab results. Result diagrams: 03/30/19 09:10 03/30/19 09:10 Lab Results 03/30/19 03/30/19 03/30/19 Range/Units 09:10 09:10 09:10 WBC 11.7 H D (4.3-11.1) K/mcL RBC 5.14 (4.19-5.50) M/mcL Hgb 15.4 D (12.9-16.9) g/dL Hct 47.8 (37.5-50.1) % MCV 93.0 (83.0-100.0) fL MCH 30.0 (28.0-33.3) pg MCHC 32.2 (31.6-35.5) g/dL RDW 14.5 (11.5-14.5) % Plt Count 187 (140-400) K/mcL MPV 10.1 (9.4-12.4) fL Immature Gran % 0.3 (0-4) % Seg Neutrophils % 82.6 % Lymphocytes % 10.9 % Monocytes % 5.9 % Eosinophils % 0.0 % Basophils % 0.3 % Neutrophils # 9.7 H (1.6-8.9) K/mcL Lymphocytes # 1.3 (0.6-4.6) K/mcL Monocytes # 0.7 (0.0-1.3) K/mcL Eosinophils # 0.0 (0.0-0.6) K/mcL Basophils # 0.0 (0.0-0.2) K/mcL PT 11.0 (9.4-12.1) Seconds INR 1.0 APTT (26.0-36.0) Seconds Sodium 136 (136-145) mEq/L Potassium 4.4 (3.5-5.1) mEq/L Chloride 97 L (98-107) mEq/L Carbon Dioxide 32 H (23-29) mEq/L BUN 20 (8-23) mg/dL Creatinine 1.60 H (0.70-1.30) mg/dL Est GFR ( Amer) 50 L (> 60) Est GFR (Non-Af Amer) 42 L (> 60) BUN/Creatinine Ratio 13 (6-26) Glucose 152 H (70-105) mg/dL Calculated Osmolality 288 (280-300) Lactic Acid (0.5-2.2) mmol/L Calcium 10.6 H (8.6-10.3) mg/dL Phosphorus (2.7-4.5) mg/dL Magnesium (1.6-2.6) mg/dL Total Bilirubin (0.3-1.0) mg/dL Direct Bilirubin (0.0-0.2) mg/dL Indirect Bilirubin (0.0-1.2) mg/dL AST (13-39) Units/L ALT (7-52) Units/L Alkaline Phosphatase (34-104) Units/L Troponin I 0.03 (< 0.04) ng/mL Serum Total Protein (6.4-8.9) g/dL Albumin (3.5-5.7) g/dL Globulin (2.4-3.5) g/dL Albumin/Globulin Ratio (1.1-2.2) Valproic Acid (50-100) mcg/mL 03/30/19 03/30/19 03/30/19 Range/Units 09:10 09:10 09:10 WBC (4.3-11.1) K/mcL RBC (4.19-5.50) M/mcL Hgb (12.9-16.9) g/dL Hct (37.5-50.1) % MCV (83.0-100.0) fL MCH (28.0-33.3) pg MCHC (31.6-35.5) g/dL RDW (11.5-14.5) % Plt Count (140-400) K/mcL MPV (9.4-12.4) fL Immature Gran % (0-4) % Seg Neutrophils % % Lymphocytes % % Monocytes % % Eosinophils % % Basophils % % Neutrophils # (1.6-8.9) K/mcL Lymphocytes # (0.6-4.6) K/mcL Monocytes # (0.0-1.3) K/mcL Eosinophils # (0.0-0.6) K/mcL Basophils # (0.0-0.2) K/mcL PT (9.4-12.1) Seconds INR APTT 34.9 (26.0-36.0) Seconds Sodium (136-145) mEq/L Potassium (3.5-5.1) mEq/L Chloride (98-107) mEq/L Carbon Dioxide (23-29) mEq/L BUN (8-23) mg/dL Creatinine (0.70-1.30) mg/dL Est GFR ( Amer) (> 60) Est GFR (Non-Af Amer) (> 60) BUN/Creatinine Ratio (6-26) Glucose (70-105) mg/dL Calculated Osmolality (280-300) Lactic Acid 1.9 (0.5-2.2) mmol/L Calcium (8.6-10.3) mg/dL Phosphorus 2.1 L (2.7-4.5) mg/dL Magnesium 2.9 H (1.6-2.6) mg/dL Total Bilirubin 0.5 (0.3-1.0) mg/dL Direct Bilirubin 0.1 (0.0-0.2) mg/dL Indirect Bilirubin 0.4 (0.0-1.2) mg/dL AST 37 (13-39) Units/L ALT 11 (7-52) Units/L Alkaline Phosphatase 119 H (34-104) Units/L Troponin I (< 0.04) ng/mL Serum Total Protein 7.3 (6.4-8.9) g/dL Albumin 4.0 (3.5-5.7) g/dL Globulin 3.3 (2.4-3.5) g/dL Albumin/Globulin Ratio 1.2 (1.1-2.2) Valproic Acid (50-100) mcg/mL 03/30/19 Range/Units 09:10 WBC (4.3-11.1) K/mcL RBC (4.19-5.50) M/mcL Hgb (12.9-16.9) g/dL Hct (37.5-50.1) % MCV (83.0-100.0) fL MCH (28.0-33.3) pg MCHC (31.6-35.5) g/dL RDW (11.5-14.5) % Plt Count (140-400) K/mcL MPV (9.4-12.4) fL Immature Gran % (0-4) % Seg Neutrophils % % Lymphocytes % % Monocytes % % Eosinophils % % Basophils % % Neutrophils # (1.6-8.9) K/mcL Lymphocytes # (0.6-4.6) K/mcL Monocytes # (0.0-1.3) K/mcL Eosinophils # (0.0-0.6) K/mcL Basophils # (0.0-0.2) K/mcL PT (9.4-12.1) Seconds INR APTT (26.0-36.0) Seconds Sodium (136-145) mEq/L Potassium (3.5-5.1) mEq/L Chloride (98-107) mEq/L Carbon Dioxide (23-29) mEq/L BUN (8-23) mg/dL Creatinine (0.70-1.30) mg/dL Est GFR ( Amer) (> 60) Est GFR (Non-Af Amer) (> 60) BUN/Creatinine Ratio (6-26) Glucose (70-105) mg/dL Calculated Osmolality (280-300) Lactic Acid (0.5-2.2) mmol/L Calcium (8.6-10.3) mg/dL Phosphorus (2.7-4.5) mg/dL Magnesium (1.6-2.6) mg/dL Total Bilirubin (0.3-1.0) mg/dL Direct Bilirubin (0.0-0.2) mg/dL Indirect Bilirubin (0.0-1.2) mg/dL AST (13-39) Units/L ALT (7-52) Units/L Alkaline Phosphatase (34-104) Units/L Troponin I (< 0.04) ng/mL Serum Total Protein (6.4-8.9) g/dL Albumin (3.5-5.7) g/dL Globulin (2.4-3.5) g/dL Albumin/Globulin Ratio (1.1-2.2) Valproic Acid < 4 L (50-100) mcg/mL - Radiology Data Radiology results reviewed: Yes I reviewed the patient's radiology results. EXAMINATION: ONE XRAY VIEW OF THE CHEST 03/30/2019 9:10 am COMPARISON: 06/05/2018 HISTORY: ORDERING SYSTEM PROVIDED HISTORY: dyspnea FINDINGS: No evidence of pneumonia, edema or other acute pulmonary process. No evidence of acute process of the cardiac or mediastinal structures. No evidence of pneumothorax or pleural effusion. Unchanged chronic atelectasis versus scarring in the left lung base. Mild right basilar atelectasis also present. XR/XR chest 1V portable IMPRESSION: No evidence of acute cardiopulmonary disease. D/ / Juan Diego Madera MD / Juan Diego Madera MD Interpreting Provider: Juan Diego Madera MD - EKG Data EKG attestation: Yes I reviewed and interpreted this EKG. EKG results narrative: EKG interpreted by myself as sinus tachycardia rate of [address] elevation
[2019-03-30] MEDS ORDERED: 0.9 % Sodium Chloride 1,000 ML IVC ONE ×2 (09:07→11:54)
[2019-03-30] MEDS ORDERED: Ipratropium/Albuterol Neb 3 ML IH ONE (09:12)
[2019-03-30] MEDS ORDERED: Albuterol 2.5 MG/3 ML NEBULIZER IH ONE (09:12)
[2019-03-30] MEDS ORDERED: 0.9 % Sodium Chloride 1,000 ML IVC SCH ×2 (09:15→11:54)
[2019-03-30 09:21] LABS: Basophils % 0.3 %; Hematocrit 47.8 % (37.5-50.1); Hemoglobin 15.4 g/dL (12.9-16.9); Immature Granulocytes % 0.3 % (0-4); Lymphocytes # 1.3 K/mcL (0.6-4.6); Lymphocytes % 10.9 %; Mean Corpuscular HGB Conc 32.2 g/dL (31.6-35.5); Mean Platelet Volume 10.1 fL (9.4-12.4); Monocytes # 0.7 K/mcL (0.0-1.3); Monocytes % 5.9 %; Neutrophils # 9.7 K/mcL (1.6-8.9); Platelet Count 187 K/mcL (140-400); Red Blood Count 5.14 M/mcL (4.19-5.50); Red Cell Distribution Width 14.5 % (11.5-14.5); Segmented Neutrophils % 82.6 %; White Blood Count 11.7 K/mcL (4.3-11.1)
[2019-03-30 09:38] LABS: Calcium 10.6 mg/dL (8.6-10.3); Potassium 4.4 mEq/L (3.5-5.1)
[2019-03-30 09:42] LABS: Troponin I 0.03 ng/mL (< 0.04)
[2019-03-30 09:43] LABS: Albumin/Globulin Ratio 1.2 (1.1-2.2); Bilirubin,Direct 0.1 mg/dL (0.0-0.2); Bilirubin,Indirect 0.4 mg/dL (0.0-1.2); Bilirubin,Total 0.5 mg/dL (0.3-1.0); Globulin 3.3 g/dL (2.4-3.5); Magnesium 2.9 mg/dL (1.6-2.6); Phosphorous 2.1 mg/dL (2.7-4.5); Total Protein 7.3 g/dL (6.4-8.9)
[2019-03-30] MEDS: 0.9 % Sodium Chloride 1,000 ML IVC SCH (09:46)
[2019-03-30] MEDS ORDERED: Ondansetron 4 MG/2 ML VIAL IVP PRN (11:54)
[2019-03-30] MEDS ORDERED: Naloxone 0.4 MG/ML INJ IVP PRN (11:54)
[2019-03-30] MEDS ORDERED: Albuterol Neb 1.25 MG/3 ML VIAL IH PRN (11:54)
[2019-03-30] MEDS ORDERED: NUTRITIONAL SUPPLEMENT GTUBE SCH (13:00)
[2019-03-30] MEDS: Gabapentin 100 MG CAPSULE GTUBE SCH ×2 (14:15→22:22)
[2019-03-30] MEDS: *HR* LORazepam 1 MG TABLET GTUBE PRN ×2 (15:09→22:22)
--- NOTE | 2019-03-30 16:14 | Internal Med History&Physical ---
Date of Encounter: 03/30/19 Time of Encounter: 15:50 Assessment and Plan (1) Aspiration pneumonitis Current visit: Yes Status: Acute He was started on IV Zosyn, vancomycin, and Levaquin in emergency room. Lactobacillus will be added. (2) CKD (chronic kidney disease) stage 3, GFR 30-59 ml/min Current visit: Yes Status: Chronic Monitor renal indices. (3) Hypophosphatemia Current visit: Yes Status: Acute Phosphorus level was 2.1 today. Neutra-Phos will be given. (4) Hypermagnesemia Current visit: Yes Status: Acute Magnesium level elevated at 2.9. Magnesium hydroxide will be held. (5) CHF (congestive heart failure) Current visit: Yes Status: Chronic Check BN peptide in a.m. Lasix is given every other day at home. Continue Lopressor. Qualifiers: Heart failure type: systolic Heart failure chronicity: chronic Qualified Code(s): I50.22 - Chronic systolic (congestive) heart failure Internal Medicine - H&P: HPI Chief complaint: Aspiration pneumonia Admitted From: Emergency Dept Plans for Post Hospital Care: Home History of present illness: Mr. Marin is a 83 year old male who was brought to emergency room after a home health nurse noted secretions from his tracheostomy that appeared to be tube feeding. He was evaluated in emergency room and was found to have slight leukocytosis with left shift. He had fever and tachycardia. It was felt he clinically had aspiration pneumonia despite chest x-ray showing no obvious infiltrate. He was admitted to [facility] floor for ongoing care needs. He is nonverbal secondary to past stroke with dementia. He receives tube feeding 240 mL every 8 hours followed by water bolus. His respiratory history is significant for having quit smoking in 1987 after approximately 50 years up to one pack per day. He has chronic respiratory failure and has had tracheostomy in place since 2013. Family reports there is been no recent change in his tube feeding regimen or caregivers that supply 24/ care for him. Past Med Surg Social Fam HX - Past Medical History Medical history: COPD, CVA, dementia, hyperlipidemia, hypertension, other Additional medical history: hernia Psychiatric history: anxiety - Past Surgical History Surgical History: herniorrhaphy, tracheostomy, other (G-tube) Additional surgical history: Gtube. Trach - Social History Smoking Status: Former smoker Smokeless Tobacco Status: No Alcohol use: none Drug use: none Internal Medicine - H&P: Meds LORazepam [Ativan] 1 mg GTUBE HS 05/26/15 [History] Mometasone/Formoterol [Dulera 100 Mcg/5 Mcg Inhaler] 2 inh IH DAILY 05/26/15 [History] Nitroglycerin 0.4 mg TD DAILY 05/26/15 [History] Rosuvastatin Calcium [Crestor] 5 mg GTUBE DAILY 05/26/15 [History] Sucralfate [Carafate] 1 gm GTUBE QIDAC 05/26/15 [History] Albuterol Neb [AccuNeb] 0.083 mg IH QID PRN 01/29/16 [History] Allopurinol [Zyloprim 100 MG] 200 mg GTUBE DAILY 01/29/16 [History] Amoxicillin Susp [Amoxil] 250 mg PO BID 01/29/16 [History] LORazepam [Ativan] 1 mg GTUBE Q4HR PRN 01/29/16 [History] Zolpidem [Ambien] 10 mg GTUBE HS 01/29/16 [History] Albuterol Sulfate [Proventil Inhaler] 1 puff IH Q4H 04/10/17 [History] Clopidogrel [Plavix] 75 mg GTUBE DAILY 04/10/17 [History] Dicyclomine 10 mg GTUBE QID PRN 04/10/17 [History] Docusate [Colace] 100 mg GTUBE BID 04/10/17 [History] Ferrous Sulfate [Ferosul] 10 ml GTUBE DAILY 04/10/17 [History] Guaifenesin [Mucinex] 600 mg GTUBE TID PRN 04/10/17 [History] Ibuprofen Susp [Motrin Susp] 800 mg GTUBE Q6H PRN 04/10/17 [History] Loratadine [Allergy Relief] 10 mg GTUBE DAILY 04/10/17 [History] Melatonin 2.5 mg GTUBE HS 04/10/17 [History] Metoprolol Tartrate [Lopressor] 25 mg GTUBE BID MDD 50 mg 04/10/17 [History] Nutritional Supplement [Resource 2.0] 237 ml GTUBE QID 04/10/17 [History] Quetiapine Fumarate [Seroquel Xr] 200 mg GTUBE DAILY 04/10/17 [History] Tamsulosin HCl [Flomax] 0.4 mg GTUBE DAILY 04/10/17 [History] Valproic Acid ( Sodium Salt) [Valproic Acid] 500 mg GTUBE TID 04/10/17 [History] Cholecalciferol (Vitamin D3) [Vitamin D3] 1,000 units GTUBE DAILY 08/19/17 [History] Ketoconazole 2% CRM [Nizoral Cream] 1 appl TP BID 03/02/18 [History] Ketoconazole Shampoo [Nizoral Shampoo] 1 applic .ROUTE Q3-4D PRN 03/02/18 [History] Lactulose 20 gm PO DAILY PRN 03/02/18 [History] Nystatin [Nystatin Suspension] 100,000 units PO QID PRN 03/02/18 [History] Dutasteride 1 cap GTUBE DAILY 04/15/18 [History] Furosemide [Lasix] 20 mg GTUBE DAILY 04/15/18 [History] Magnesium Hydroxide [Milk of Magnesia] 100 ml GTUBE DAILY PRN 04/15/18 [History] Nystatin POWDER [Nystop] 1 appl TP BID PRN 04/15/18 [History] Potassium 20 mg PO DAILY 04/15/18 [History] PredniSONE [Carina] 5 mg PO DAILY 04/15/18 [History] Ferrous Sulfate [Ferosul] 220 mg PO DAILY 06/05/18 [History] Ibuprofen [Motrin] 800 mg PO Q8HR 06/05/18 [History] Magnesium Hydroxide [Milk of Magnesia] 1,200 mg PO DAILY 06/05/18 [History] Montelukast [Singulair] 10 mg PO DAILY 06/05/18 [History] Gabapentin 100 mg GTUBE TID 03/30/19 [History] Memantine HCl/Donepezil HCl [Namzaric 28 mg-10 mg Capsule] 1 each PO DAILY 03/30/19 [History] Allergy/AdvReac Type Severity Reaction Status Date / Time diazepam [From Valium] Allergy Agitated Verified 06/05/18 20:07 All Systems PM: A 10-system review of systems was performed and is negative for pertinent findings except as documented above in the HPI. Review of systems: Review of systems from his March 2017 [facility] hospitalization were reviewed and revised as below. Gen.: His weight has increased from 161 pounds January 2015 to present weight of approximately 234 pounds Cardiovascular: He has history of hypertension. He had AAA repair 1997. Echocardiogram July 2014 showed LVEF of 20-25%. Valvular structures were not seen well. He had mild TR. The estimated RVSP was 45 mmHg. He has not had DVT or pulmonary embolus. Respiratory: As per history of present illness GI: He has no known disorder of liver gallbladder or exocrine pancreas. He had abdominal hernia with mesh placement and G-tube placed originally August 2014 at [facility] [place]. He had a new G-tube placed a few weeks ago. Family reports the surgeon discussed consideration for J-tube placement. : He has chronic kidney disease stage III. No other kidney or bladder disorders or known Neurologic: Had a CVA approximately 2000 with left arm weakness. He has not had known seizures. He has dementia. Endocrine: He has hyperlipidemia but no known diabetes or thyroid disease Hematology/oncology: He has history of anemia but no known internal malignancies Psychiatric: He has dementia and agitation but no significant anxiety depression or other mental health issues Musk skeletal: He has DJD and gout - Constitutional Vitals: Temp Pulse Resp BP Pulse Ox 101.3 F H 139 20 127/82 93 03/30/19 14:24 03/30/19 14:24 03/30/19 14:24 03/30/19 14:24 03/30/19 14:24 Exam: Gen.: He is a well-developed overweight male lying in bed who appears flushed in the face and slightly dyspneic. HEENT: Head is atraumatic and normocephalic. Eyes: EOMI. (Random observation). Mouth: Mucosa is moist. Neck: Tracheostomy is in place with oxygen by trach mask. There are secretions at the trach opening. Heart: Regular with tones distant. No ectopics are heard. Lungs: He has coarse scattered rhonchi anteriorly in both lung giordano. Abdomen: G-tube is in place in the epigastric area. The abdomen is large. It is nontender to light palpation. Extremities: There is no cyanosis edema or clubbing noted. Dorsalis pedis and posterior tibial pulses are trace palpable bilaterally. Neurologic: Mental status: His eyes are open but he is nonverbal and does not follow commands. Cranial nerves: He does not follow commands. There appears to be EOMI from random observation. He does not protrude his tongue. Motor: He does not move his arms much spontaneously. He does withdraw his feet to sock removal. No further neurologic testing is attempted. Skin: Warm and dry Internal Med - H&P Results - Labs CBC & Chem 7: 03/30/19 09:10 03/30/19 09:10 Labs: Short CBC 03/30/19 Range/Units 09:10 WBC 11.7 H D (4.3-11.1) K/mcL Hgb 15.4 D (12.9-16.9) g/dL Hct 47.8 (37.5-50.1) % Plt Count 187 (140-400) K/mcL Neutrophils # 9.7 H (1.6-8.9) K/mcL BMP 03/30/19 09:10 Sodium 136 Potassium 4.4 Chloride 97 L Carbon Dioxide 32 H BUN 20 Creatinine 1.60 H Glucose 152 H Calcium 10.6 H Cardiac Enzymes 03/30/19 Range/Units 09:10 Troponin I 0.03 (< 0.04) ng/mL Liver Function 03/30/19 Range/Units 09:10 Total Bilirubin 0.5 (0.3-1.0) mg/dL Direct Bilirubin 0.1 (0.0-0.2) mg/dL AST 37 (13-39) Units/L ALT 11 (7-52) Units/L Alkaline Phosphatase 119 H (34-104) Units/L Albumin 4.0 (3.5-5.7) g/dL - Impressions ITS Impressions Chest X-Ray 03/30/19 08:44 IMPRESSION: No evidence of acute cardiopulmonary disease. D/ / Juan Diego Madera MD / Juan Diego Madera MD Interpreting Provider: Juan Diego Madera MD
[2019-03-30] MEDS ORDERED: traMADol 50 MG TABLET PO SCH (18:00)
[2019-03-30] MEDS ORDERED: Lactobacillus 1 EACH CAP.SPRINK PO SCH (21:00)
--- NOTE | 2019-03-30 22:09 | Electrocardiograph Report ---
[place] [id number] Test Date: 2019-03-30 Pat Name: Rayray Marin Department: EDP-14 Room: [facility] Gender: Physician Office Assistant: : [id number] Requested By: Jaky Mcneil Order Number: [id number] Reading MD: Endy Costello Measurements Intervals Gilbert Rate: 122 P: 59 GA: 168 QRS: 49 QRSD: 101 T: 183 QT: 291 QTc: 415 Interpretive Statements Sinus tachycardia Low voltage, precordial leads RSR' in V1 or V2, probably normal variant Nonspecific T abnrm, anterolateral leads Electronically Signed On 03-30-2019 22:07:54 EDT by Endy Costello
[2019-03-30] MEDS: Docusate Oral Soln 100 MG/10 ML UDC GTUBE SCH (22:22)
[2019-03-30] MEDS: Lactobacillus 1 EACH CAP.SPRINK GTUBE SCH (22:22)
[2019-03-31] MEDS: Piperacillin/Tazobactam 3.375 GM in 0.9 % Sodium Chloride Mini Bag 100 ML IVPB SCH ×3 (00:03→18:00)
[2019-03-31] MEDS: traMADol 50 MG TABLET GTUBE SCH ×4 (00:04→17:57)
[2019-03-31] MEDS: 0.9 % Sodium Chloride 1,000 ML IVC SCH ×2 (02:01→02:03)
[2019-03-31 07:40] LABS: Bilirubin,Urine Negative (Negative); Blood,Urine Moderate (Negative); Clarity,Urine Clear (Clear); Color,Urine Yellow (Yellow); Glucose,Urine (UA) Normal (Normal); Ketones,Urine Negative (Negative); Leukocyte Esterase,Urine Negative (Negative); Nitrite,Urine Negative (Negative); Protein,Urine 100 mg/dL (Neg-Trace); Urobilinogen,Urine Normal (Normal)
[2019-03-31 07:57] LABS: Bacteria,Urine Few per hpf (None-Few); Mucus,Urine Few (Few); RBC,Urine 15-30 per hpf (0-3); Squamous Epithelial Cell,Urine Few per lpf (None-Few); WBC,Urine 0-3 per hpf (0-3)
[2019-03-31 08:30] LABS: Basophils % 0.2 %; Eosinophils % 0.1 %; Hematocrit 42.3 % (37.5-50.1); Hemoglobin 13.6 g/dL (12.9-16.9); Immature Granulocytes % 0.4 % (0-4); Lymphocytes # 1.7 K/mcL (0.6-4.6); Lymphocytes % 13.5 %; Mean Corpuscular HGB Conc 32.2 g/dL (31.6-35.5); Mean Corpuscular Volume 93.2 fL (83.0-100.0); Mean Platelet Volume 10.2 fL (9.4-12.4); Monocytes # 1.3 K/mcL (0.0-1.3); Monocytes % 10.2 %; Neutrophils # 9.7 K/mcL (1.6-8.9); Platelet Count 145 K/mcL (140-400); Red Blood Count 4.54 M/mcL (4.19-5.50); Red Cell Distribution Width 14.9 % (11.5-14.5); Segmented Neutrophils % 75.6 %; White Blood Count 12.8 K/mcL (4.3-11.1)
[2019-03-31 08:40] LABS: Magnesium 2.2 mg/dL (1.6-2.6); Uric Acid 5.4 mg/dL (2.3-7.6)
[2019-03-31 08:41] LABS: Potassium 4.1 mEq/L (3.5-5.1)
--- NOTE | 2019-03-31 10:30 | Internal Med Progress Note ---
Date of Encounter: 03/31/19 Time of Encounter: 10:22 - Assessment and plan (1) Aspiration pneumonitis Current Visit: Yes Status: Acute Assessment and plan: March 31. WBC minimally increased but differential improved. Lactic acid level now normal. Continue IV Zosyn and vancomycin with lactobacillus. Recheck labs in a.m. (2) CKD (chronic kidney disease) stage 3, GFR 30-59 ml/min Current Visit: Yes Status: Chronic Assessment and plan: March 31. Monitor renal indices. (3) Hypophosphatemia Current Visit: Yes Status: Acute Assessment and plan: March 31. Recheck phosphorus level in a.m. (4) Hypermagnesemia Current Visit: Yes Status: Acute Assessment and plan: March 31. Magnesium level now normal at 2.2. Continue to monitor as needed. (5) CHF (congestive heart failure) Current Visit: Yes Status: Chronic Assessment and plan: March 31. BN peptide normal at 56. Continue Lopressor and q.o.d. Lasix. Qualifiers: Heart failure type: systolic Heart failure chronicity: chronic Qualified Code(s): I50.22 - Chronic systolic (congestive) heart failure - Subjective Interval history: March 31. No new problems have arisen. - Constitutional Vitals: Temp Pulse Resp BP Pulse Ox 99.8 F H 104 16 135/82 91 03/31/19 06:28 03/31/19 06:28 03/31/19 06:28 03/31/19 06:28 03/31/19 06:28 Exam: He is resting comfortably in bed and appears in less distress than yesterday. Remains nonverbal. Extremities show no pitting edema. Abdomen is soft and nontender. Lungs show decreased rhonchi. I reviewed his medications, lab r esults, and CT report. Internal Medicine: Result - Labs CBC & Chem 7: 03/31/19 08:15 03/31/19 08:15 Labs: Short CBC 03/31/19 Range/Units 08:15 WBC 12.8 H (4.3-11.1) K/mcL Hgb 13.6 D (12.9-16.9) g/dL Hct 42.3 (37.5-50.1) % Plt Count 145 (140-400) K/mcL Neutrophils # 9.7 H (1.6-8.9) K/mcL BMP 03/31/19 08:15 Sodium 136 Potassium 4.1 Chloride 100 Carbon Dioxide 29 BUN 24 H Creatinine 1.73 H Glucose 113 H Calcium 10.0 Urine 03/31/19 Range/Units 05:50 Urine Color Yellow (Yellow) Urine Clarity Clear (Clear) Urine pH 7.0 (5.0-8.0) pH Units Ur Specific [place] 1.020 (1.010-1.025) Urine Protein 100 H (Neg-Trace) mg/dL Urine Glucose (UA) Normal (Normal) mg/dL - ABG Interpretation ABG results: PT/INR, D-dimer PT 11.0 Seconds (9.4-12.1) 03/30/19 09:10 - Impressions Impressions Abdomen/Pelvis CT 03/31/19 08:56 IMPRESSION: Appropriate positioning of the G-tube with its inflated bulb lying intraluminally anteriorly in the body of the stomach. No evident leakage. No acute intra-abdominal abnormality. Multiple stable simple cyst. Slight increase in the size of a small infrarenal abdominal aortic aneurysm now measuring 33.6 mm AP. No other significant abnormality identified. RECOMMENDATIONS: For management of fusiform AAA: 3.0-3.4 cm AAA, RECOMMEND FOLLOW-UP EVERY 3 YEARS. 3.5-3.9 cm AAA, recommend follow-up every 2 years. 4.0-4.4 cm AAA, recommend follow-up every 12 months and recommend vascular consultation. 4.5-5.4 cm AAA, recommend follow-up every 6 months and recommend vascular consultation. >5.5 cm AAA, recommend referral to vascular specialist. * For management of saccular abdominal aortic aneurysms of any size, recommend vascular consultation. References: J Am Max Radiol 2013; 10(10):789-794; J Vasc Surg. 2018; 67:2-77 D/ / Nestor Duffy MD / Nestor Duffy MD Interpreting Provider: Nestor Duffy MD Consult Discharge Plan - Plan Referrals: Irene Donato MD [Primary Care Provider] - 1 week
[2019-03-31] MEDS: Budesonide/Formoterol 80/4.5 1 PUFF INH IH SCH (10:53)
[2019-03-31] MEDS: Ferrous Sulfate Oral Soln 300 MG/5 ML UDC GTUBE SCH (11:04)
[2019-03-31] MEDS: Docusate Oral Soln 100 MG/10 ML UDC GTUBE SCH ×2 (11:04→21:09)
[2019-03-31] MEDS: Gabapentin 100 MG CAPSULE GTUBE SCH ×3 (11:07→21:09)
[2019-03-31] MEDS: Finasteride 5 MG TABLET PO SCH (11:07)
[2019-03-31] MEDS: Nitroglycerin 0.4 MG PATCH.TD24 TD SCH (11:07)
[2019-03-31] MEDS: Lactobacillus 1 EACH CAP.SPRINK GTUBE SCH ×2 (11:13→21:08)
[2019-03-31] MEDS: Namzaric 28 Mg-10 Mg PO SCH (13:20)
[2019-03-31] MEDS: Albuterol 2.5 MG/3 ML NEBULIZER IH PRN (15:00)
[2019-03-31] MEDS ORDERED: Lactulose Oral Soln 20 GM/30 ML UDC GTUBE ONE (15:50)
[2019-03-31] MEDS: *HR* Enoxaparin 40 MG/0.4 ML SYRINGE SQ SCH (16:12)
[2019-03-31] MEDS ORDERED: *HR* LORazepam 1 MG TABLET GTUBE PRN (20:23)
[2019-03-31] MEDS ORDERED: Hyoscyamine SL 0.125 MG TAB.SUBL SL PRN (20:57)
[2019-03-31] MEDS ORDERED: Hyoscyamine SL 0.125 MG TAB.SUBL GTUBE PRN (23:41)
[2019-04-01] MEDS: Piperacillin/Tazobactam 3.375 GM in 0.9 % Sodium Chloride Mini Bag 100 ML IVPB SCH ×2 (00:04→10:24)
[2019-04-01] MEDS: traMADol 50 MG TABLET GTUBE SCH ×2 (00:40→05:50)
[2019-04-01] MEDS: *HR* Enoxaparin 40 MG/0.4 ML SYRINGE SQ SCH (05:50)
[2019-04-01 06:00] LABS: Basophils % 0.4 %; Eosinophils # 0.1 K/mcL (0.0-0.6); Eosinophils % 0.8 %; Immature Granulocytes % 0.2 % (0-4); Lymphocytes # 1.2 K/mcL (0.6-4.6); Lymphocytes % 14.1 %; Mean Corpuscular HGB Conc 31.6 g/dL (31.6-35.5); Mean Corpuscular Hemoglobin 29.8 pg (28.0-33.3); Mean Corpuscular Volume 94.3 fL (83.0-100.0); Mean Platelet Volume 10.6 fL (9.4-12.4); Monocytes # 0.8 K/mcL (0.0-1.3); Monocytes % 9.2 %; Neutrophils # 6.4 K/mcL (1.6-8.9); Platelet Count 139 K/mcL (140-400); Red Blood Count 4.03 M/mcL (4.19-5.50); Red Cell Distribution Width 14.9 % (11.5-14.5); Segmented Neutrophils % 75.3 %; White Blood Count 8.5 K/mcL (4.3-11.1)
[2019-04-01 07:42] LABS: Calcium 9.9 mg/dL (8.6-10.3); Magnesium 2.3 mg/dL (1.6-2.6); Phosphorous 3.1 mg/dL (2.7-4.5)
[2019-04-01] MEDS: Albuterol 2.5 MG/3 ML NEBULIZER IH PRN (09:31)
[2019-04-01] MEDS: Budesonide/Formoterol 80/4.5 1 PUFF INH IH SCH (09:38)
[2019-04-01] MEDS: Lactobacillus 1 EACH CAP.SPRINK GTUBE SCH (10:19)
[2019-04-01] MEDS: Nitroglycerin 0.4 MG PATCH.TD24 TD SCH (10:19)
[2019-04-01] MEDS: Finasteride 5 MG TABLET PO SCH (10:20)
[2019-04-01] MEDS: Gabapentin 100 MG CAPSULE GTUBE SCH (10:24)
[2019-04-01] MEDS: Ferrous Sulfate Oral Soln 300 MG/5 ML UDC GTUBE SCH (10:26)
[2019-04-01] MEDS: Docusate Oral Soln 100 MG/10 ML UDC GTUBE SCH (10:26)
[2019-04-01] MEDS: Namzaric 28 Mg-10 Mg PO SCH (10:48)
[2019-04-01 12:01] VITALS: BP 101/61
--- NOTE | 2019-04-01 12:40 | Discharge Summary ---
Orders not resulted at time of discharge: Pending orders 03/30/19 09:16 Culture,Blood [BC] Stat 03/30/19 10:34 Culture,Sputum with Gram Stain [RM] Stat 03/31/19 05:50 Culture,Urine [RM] Stat Date of Encounter: 04/01/19 Time of Encounter: 12:25 - Discharge Diagnosis (1) Aspiration pneumonitis Priority: Primary Status: Acute (2) CKD (chronic kidney disease) stage 3, GFR 30-59 ml/min Priority: Secondary Status: Chronic (3) Hypophosphatemia Priority: Secondary Status: Resolved (4) Hypermagnesemia Priority: Secondary Status: Resolved (5) CHF (congestive heart failure) Priority: Secondary Status: Chronic Qualifiers: Heart failure type: systolic Heart failure chronicity: chronic Qualified Code(s): I50.22 - Chronic systolic (congestive) heart failure Hospital course: Mr. Marin is a 83 year old male who was brought to emergency room after a home health nurse noted secretions from his tracheostomy that appeared to be tube feeding. He was evaluated in emergency room and was found to have slight leukocytosis with left shift. He had fever and tachycardia. It was felt he clinically had aspiration pneumonia despite chest x-ray showing no obvious infiltrate. He was admitted to [facility] floor for ongoing care needs. Initial orders were written by the emergency room physician. I saw him on March 30 and performed a history and physical. He was started on IV Zosyn, vancomycin, and Levaquin in emergency room. Lactobacillus was added. He had good clinical response with normalization of WBC and left shift by day of discharge. He remained afebrile the last 24 hours of hospitalization. He will continue with antibiotic and probiotic for 3 additional days at discharge. He had urinary retention requiring Carnes catheter insertion. Approximately 300 mL urine was obtained on insertion. The catheter will be discontinued upon discharge. Home health nurses can monitor urine output to determine if reinsertion of Carnes is indicated. Calcium, phosphorus, and magnesium levels normalized by day of discharge. On April 01 he was stable for discharge home. He will follow with his PCP Dr. Donato within 1 week. - Time Spent with Patient Total time spent providing and/or coordinating discharge services: - Discharge Medications Prescriptions: New Amoxicillin/Clavulanate [Augmentin Susp] 400 mg PO Q8H #9 udc Lactobacillus [Culturelle] 1 each GTUBE BID #6 cap.sprink Doxycycline 100 mg GTUBE BID #6 capsule Continued LORazepam [Ativan] 1 mg GTUBE HS Rosuvastatin Calcium [Crestor] 5 mg GTUBE DAILY Sucralfate [Carafate] 1 gm GTUBE QIDAC Mometasone/Formoterol [Dulera 100 Mcg/5 Mcg Inhaler] 2 inh IH DAILY Nitroglycerin 0.4 mg TD DAILY LORazepam [Ativan] 1 mg GTUBE Q4HR PRN PRN Reason: Anxiety Zolpidem [Ambien] 10 mg GTUBE HS Allopurinol [Zyloprim 100 MG] 200 mg GTUBE DAILY Amoxicillin Susp [Amoxil] 250 mg PO BID Albuterol Neb [AccuNeb] 0.083 mg IH QID PRN PRN Reason: sob Ferrous Sulfate [Ferosul] 10 ml GTUBE DAILY Clopidogrel [Plavix] 75 mg GTUBE DAILY Guaifenesin [Mucinex] 600 mg GTUBE TID PRN PRN Reason: Congestion Albuterol Sulfate [Proventil Inhaler] 1 puff IH Q4H Dicyclomine 10 mg GTUBE QID PRN PRN Reason: Abdominal Distention Melatonin 2.5 mg GTUBE HS Quetiapine Fumarate [Seroquel Xr] 200 mg GTUBE DAILY Tamsulosin HCl [Flomax] 0.4 mg GTUBE DAILY Docusate [Colace] 100 mg GTUBE BID Metoprolol Tartrate [Lopressor] 25 mg GTUBE BID MDD 50 mg Valproic Acid ( Sodium Salt) [Valproic Acid] 500 mg GTUBE TID Nutritional Supplement [Resource 2.0] 237 ml GTUBE QID Cholecalciferol (Vitamin D3) [Vitamin D3] 1,000 units GTUBE DAILY Ketoconazole 2% CRM [Nizoral Cream] 1 appl TP BID Ketoconazole Shampoo [Nizoral Shampoo] 1 applic .ROUTE Q3-4D PRN PRN Reason: Itching Nystatin [Nystatin Suspension] 100,000 units PO QID PRN PRN Reason: Pain Lactulose 20 gm PO DAILY PRN PRN Reason: Constipation Nystatin POWDER [Nystop] 1 appl TP BID PRN PRN Reason: Rash Potassium 20 mg PO DAILY Furosemide [Lasix] 20 mg GTUBE DAILY Magnesium Hydroxide [Milk of Magnesia] 100 ml GTUBE DAILY PRN PRN Reason: Constipation PredniSONE [Carina] 5 mg PO DAILY Dutasteride 1 cap GTUBE DAILY Magnesium Hydroxide [Milk of Magnesia] 1,200 mg PO DAILY Montelukast [Singulair] 10 mg PO DAILY Ferrous Sulfate [Ferosul] 220 mg PO DAILY Memantine HCl/Donepezil HCl [Namzaric 28 mg-10 mg Capsule] 1 each PO DAILY Gabapentin 100 mg GTUBE TID Discontinued Loratadine [Allergy Relief] 10 mg GTUBE DAILY Ibuprofen Susp [Motrin Susp] 800 mg GTUBE Q6H PRN PRN Reason: pain/fever Ibuprofen [Motrin] 800 mg PO Q8HR Home Medications: LORazepam [Ativan] 1 mg GTUBE HS 05/26/15 [History] Mometasone/Formoterol [Dulera 100 Mcg/5 Mcg Inhaler] 2 inh IH DAILY 05/26/15 [History] Nitroglycerin 0.4 mg TD DAILY 05/26/15 [History] Rosuvastatin Calcium [Crestor] 5 mg GTUBE DAILY 05/26/15 [History] Sucralfate [Carafate] 1 gm GTUBE QIDAC 05/26/15 [History] Albuterol Neb [AccuNeb] 0.083 mg IH QID PRN 01/29/16 [History] Allopurinol [Zyloprim 100 MG] 200 mg GTUBE DAILY 01/29/16 [History] Amoxicillin Susp [Amoxil] 250 mg PO BID 01/29/16 [History] LORazepam [Ativan] 1 mg GTUBE Q4HR PRN 01/29/16 [History] Zolpidem [Ambien] 10 mg GTUBE HS 01/29/16 [History] Albuterol Sulfate [Proventil Inhaler] 1 puff IH Q4H 04/10/17 [History] Clopidogrel [Plavix] 75 mg GTUBE DAILY 04/10/17 [History] Dicyclomine 10 mg GTUBE QID PRN 04/10/17 [History] Docusate [Colace] 100 mg GTUBE BID 04/10/17 [History] Ferrous Sulfate [Ferosul] 10 ml GTUBE DAILY 04/10/17 [History] Guaifenesin [Mucinex] 600 mg GTUBE TID PRN 04/10/17 [History] Melatonin 2.5 mg GTUBE HS 04/10/17 [History] Metoprolol Tartrate [Lopressor] 25 mg GTUBE BID MDD 50 mg 04/10/17 [History] Nutritional Supplement [Resource 2.0] 237 ml GTUBE QID 04/10/17 [History] Quetiapine Fumarate [Seroquel Xr] 200 mg GTUBE DAILY 04/10/17 [History] Tamsulosin HCl [Flomax] 0.4 mg GTUBE DAILY 04/10/17 [History] Valproic Acid ( Sodium Salt) [Valproic Acid] 500 mg GTUBE TID 04/10/17 [Hist ory] Cholecalciferol (Vitamin D3) [Vitamin D3] 1,000 units GTUBE DAILY 08/19/17 [History] Ketoconazole 2% CRM [Nizoral Cream] 1 appl TP BID 03/02/18 [History] Ketoconazole Shampoo [Nizoral Shampoo] 1 applic .ROUTE Q3-4D PRN 03/02/18 [History] Lactulose 20 gm PO DAILY PRN 03/02/18 [History] Nystatin [Nystatin Suspension] 100,000 units PO QID PRN 03/02/18 [History] Dutasteride 1 cap GTUBE DAILY 04/15/18 [History] Furosemide [Lasix] 20 mg GTUBE DAILY 04/15/18 [History] Magnesium Hydroxide [Milk of Magnesia] 100 ml GTUBE DAILY PRN 04/15/18 [History] Nystatin POWDER [Nystop] 1 appl TP BID PRN 04/15/18 [History] Potassium 20 mg PO DAILY 04/15/18 [History] PredniSONE [Carina] 5 mg PO DAILY 04/15/18 [History] Ferrous Sulfate [Ferosul] 220 mg PO DAILY 06/05/18 [History] Magnesium Hydroxide [Milk of Magnesia] 1,200 mg PO DAILY 06/05/18 [History] Montelukast [Singulair] 10 mg PO DAILY 06/05/18 [History] Gabapentin 100 mg GTUBE TID 03/30/19 [History] Memantine HCl/Donepezil HCl [Namzaric 28 mg-10 mg Capsule] 1 each PO DAILY 03/30/19 [History] Amoxicillin/Clavulanate [Augmentin Susp] 400 mg PO Q8H #9 udc 04/01/19 [Rx] Doxycycline 100 mg GTUBE BID #6 capsule 04/01/19 [Rx] Lactobacillus [Culturelle] 1 each GTUBE BID #6 cap.sprink 04/01/19 [Rx] Allergies/Adverse Reactions: Allergy/AdvReac Type Severity Reaction Status Date / Time diazepam [From Valium] Allergy Agitated Verified 06/05/18 20:07 Date of admission: 03/31/19 11:38 Primary care physician: Irene Donato Consults: 03/30/19 19:29 Consult to Soup Mixer [CONS] Routine Reason for SW Consult: Discharge Planning 03/31/19 15:48 Consult to Nutrition [CONS] Routine Comment: Start and manage tube feed Consulting Provider: NUTRITION Reason for Dietary Consult: Tube Feed Start & Manage - Constitutional Vitals: Temp Pulse Resp BP Pulse Ox 98.8 F 92 20 101/61 94 04/01/19 11:59 04/01/19 11:59 04/01/19 11:59 04/01/19 11:59 04/01/19 11:59 - Patient Status Disposition: Home, Self-Care Condition: Fair - Discharge Instructions Follow Up With: Irene Donato MD [Primary Care Provider] - 1 week - Diet and Activity Activity: resume usual activities as tolerated Diet: advance to your usual diet
== END 2019-04-01 14:11 | disposition home or self-care (01) | DRG 178 ==
LOC: EMEROOPIK 08:40 → INPPIK 08:40
PROVIDERS: ADMIT Internal Medicine; ATTEND Internal Medicine